=== PATIENT | female | born 1970 | race Caucasian/White ===

== ENCOUNTER → 2018-05-17 12:21 | Outpatient (CLI) | payer OTHER, SELFPAY ==
--- NOTE | 2018-05-17 12:27 | RAD_ITS ---
STUDY: X-RAY CHEST REASON FOR EXAM: Female, 48 years old. Acute bronchitis. TECHNIQUE: PA and lateral views of the chest. COMPARISON: Comparison is made with prior study dated July 14, 2015. FINDINGS: Hyperinflation. There is evidence of a lingular infiltrate. Follow-up is recommended. There is no demonstrated pleural abnormality. Normal size heart. Normal mediastinum and chris. Normal visualized pulmonary arteries. Normal visualized aortic arch and descending thoracic aorta. There are degenerative changes of the visualized thoracic spine. Normal visualized ribs, clavicles, and shoulders. There is no demonstrated abnormality of the visualized soft tissue structures of the upper abdomen. RAD/Chest PA and Lateral IMPRESSION: Lingular infiltrate. Follow-up is recommended. Electronically Signed: Darnell Infante MD at 13:21 EST Tel [phone], Service support ,
== END ==
PROVIDERS: Family Provider Family Medicine; PCP Family Medicine; Referring Provider Family Medicine; Visit Provider Family Medicine
DX: J20.9 Acute bronchitis, unspecified (principal)
CPT/HCPCS: 71046

== ENCOUNTER → 2018-07-26 15:52 | Outpatient (CLI) | payer OTHER, SELFPAY ==
[2018-07-26 17:40] LABS: Absolute Lymphocyte Count 1.47 X10^3/ul (0.83-4.51); Absolute Neutrophil Count 13.4 X10^3/uL (2.0-7.7); Basophil# 0.03 X10^3/uL; Basophil% 0.2 % (0-1); Lymphocyte # 1.47 X10^3/ul (4.0); Lymphocyte % 9.4 % (19-41); Mean Corpuscular Hgb 26.2 pg (27.0-32.0); Mean Corpuscular Volume 84.7 fL (81-99); Mean Platelet Vol. 9.3 fl (6.2-12.0); Monocyte# 0.47 X10^3/uL; Neutrophil # 13.37 X10^3/uL (2.7-7.7); Neutrophil % 85.9 % (47-70); POSITIVE COUNT NO; POSITIVE DIFFERENTIAL NO; POSITIVE MORPHOLOGY NO; Platelet Count 492 K/mm3 (150-450); RBC Distribution Width CV 16.9 % (11.6-14.6); RBC Distribution Width SD 51.6 fl (35.1-43.9); Red Blood Count 4.96 M/mm3 (4.2-5.4); White Blood Count 15.6 K/mm3 (4.4-11.0)
[2018-07-26 18:10] LABS: ALB/GLOB Ratio 1.2 RATIO (0.9-2.4); AST(SGOT) 10 U/L (15-37); Alanine Aminotransfer ALT/SGPT 31 U/L (13-56); Albumin, Serum 3.9 g/dL (3.2-5.0); Alkaline Phosphatase 72 U/L (45-117); Anion Gap 8 (5-15); BUN 15 mg/dL (7-18); Chloride 104 mmol/L (98-107); Creatinine, Serum 0.88 mg/dL (0.55-1.02); EST Glomerular Filtration Rate 73 mL/min (>60); Est Glom Filt Rate - Afr Amer 88 mL/min (>60); Globulin 3.2 g/dL (2.2-4.2); Glucose 112 mg/dL (74-106); Potassium 4.5 mmol/L (3.5-5.1); Protein, Total 7.1 g/dL (6.4-8.2); Sodium Level 138 mmol/L (136-145)
== END ==
PROVIDERS: Family Provider Family Medicine; PCP Family Medicine; Visit Provider Nurse Practitioner Adult Health
DX: R10.30 Lower abdominal pain, unspecified (principal)
CPT/HCPCS: 36415; 80053; 85025

== ENCOUNTER → 2018-08-05 07:09 | Outpatient (CLI) | payer OTHER, SELFPAY ==
--- NOTE | 2018-08-05 07:20 | CT_ITS ---
STUDY: CT ABDOMEN AND PELVIS WITH CONTRAST REASON FOR EXAM: Female, 48 years old. Lower abdominal pain, pain under the sternum area. Former smoker with history of hypertension, asthma, COPD. RADIATION DOSAGE (If Supplied By Facility): CTDIvol = ( 19.94 ) mGy, DLP = ( 1593.26 ) mGycm TECHNIQUE: Transaxial images were obtained from the dome of the diaphragm to the symphysis pubis with oral contrast. 100 ml of Isovue 300 contrast was administered. Sagittal and coronal images were reconstructed. Imaging was obtained in the portal venous phase contrast. Individualized dose optimization techniques were used for this CT. COMPARISON: None. FINDINGS: Body wall soft tissues: No acute process. Osseous structures: Prominent degenerative disc disease L5-S1 contributing to moderate left and mild right foraminal stenosis. Mild disc bulging at L4-L5 and L3-L4 without significant stenosis. Right hip arthroplasty appears to be normally seated and articulated. No acute osseous process. There are old right-sided posterior rib fractures, healed. Inferior chest: Hyperlucent lung bases consistent with COPD. Normal distal esophagus. No cardiomegaly. Hepatobiliary: Normal. Pancreas: Mild fatty atrophy. Spleen: Normal. Adrenal glands: Normal. Urogenital: Normal kidneys, collecting systems, ureters, urinary bladder, uterus, ovaries and adnexa. Pelvic floor and sidewalls and retroperitoneum: No mass or adenopathy. Vasculature: Minimal atherosclerosis. Stomach: No acute process. Small bowel and mesentery: No acute process. Large bowel: Normal appendix. Unremarkable large bowel and rectum. Free fluid or free air: None. CT/Abdomen/Pelvis WITH Contrast IMPRESSION: No acute abdominopelvic process is evident. Electronically Signed: Jamison Lobato MD at 13:05 EDT Tel , Service support ,
== END ==
PROVIDERS: Family Provider Family Medicine; PCP Family Medicine; Referring Provider Family Medicine; Visit Provider Family Medicine
DX: R10.30 Lower abdominal pain, unspecified (principal)
CPT/HCPCS: 74177; Q9967

== ENCOUNTER → 2018-09-08 16:43 | Outpatient (CLI) | payer OTHER, SELFPAY ==
[2018-09-08 17:44] LABS: Hematocrit 41.5 % (37-47); Hemoglobin 13.6 g/dl (12.0-15.0); Mean Corp Hgb Conc 32.8 g/gl (32-36); Mean Corpuscular Volume 82.3 fL (81-99); Mean Platelet Vol. 9.4 fl (6.2-12.0); POSITIVE COUNT NO; POSITIVE DIFFERENTIAL NO; POSITIVE MORPHOLOGY NO; Platelet Count 306 K/mm3 (150-450); RBC Distribution Width CV 17.8 % (11.6-14.6); RBC Distribution Width SD 52.4 fl (35.1-43.9); Red Blood Count 5.04 M/mm3 (4.2-5.4); White Blood Count 5.2 K/mm3 (4.4-11.0)
[2018-09-08 17:45] LABS: Absolute Neutrophil Count 2.7 X10^3/uL (2.0-7.7); Basophil# 0.02 X10^3/uL; Basophil% 0.4 % (0-1); Eosinophil# 0.23 X10^3/uL; Eosinophils% 4.4 % (0-5); Lymphocyte # 1.39 X10^3/ul (4.0); Lymphocyte % 26.7 % (19-41); Monocyte# 0.83 X10^3/uL; Neutrophil # 2.73 X10^3/uL (2.7-7.7); Neutrophil % 52.5 % (47-70)
[2018-09-10 16:08] LABS: Endomysial Antibody IgA Negative (Negative)
[2018-09-11 08:50] LABS: Deamidated Gliadin IgA 3 units (0-19); Deamidated Gliadin IgG 2 units (0-19); Immunoglobulin A 109 mg/dL (87-352); t-Transglutaminase IgA <2 U/mL (0-3)
== END ==
PROVIDERS: Family Provider Family Medicine; PCP Family Medicine; Referring Provider Family Medicine; Visit Provider Family Medicine
DX: K58.9 Irritable bowel syndrome, unspecified (principal)
CPT/HCPCS: 36415; 82784; 83516; 85025; 86255

== ENCOUNTER → 2018-10-01 16:36 | Outpatient (CLI) | payer OTHER, SELFPAY ==
[2018-10-12 09:32] LABS: Fats, Neutral Normal (.); Fats, Total Normal (.)
== END ==
PROVIDERS: Family Provider Family Medicine; PCP Family Medicine; Referring Provider Internal Medicine Gastroenterology; Visit Provider Internal Medicine Gastroenterology
DX: R19.7 Diarrhea, unspecified (principal)
CPT/HCPCS: 82705

== ENCOUNTER → 2019-04-04 10:11 | Outpatient (CLI) | payer OTHER, SELFPAY ==
[2019-04-04 12:22] LABS: Erythrocyte Sedimentation Rate 12 mm/hr (0-20)
[2019-04-04 12:48] LABS: Rheumatoid Factor < 10.0 IU/mL (<15); Thyroid Stim Hormone (TSH) 2.84 uIU/mL (0.358-3.74)
[2019-04-05 14:25] LABS: ANTINUCLEAR ANTIBODIES DIRECT Negative (Negative)
== END ==
PROVIDERS: Family Provider Family Medicine; PCP Family Medicine; Visit Provider Family Medicine
DX: E55.9 Vitamin D deficiency, unspecified (principal); F32.9 Major depressive disorder, single episode, unspecified; M25.50 Pain in unspecified joint
CPT/HCPCS: 36415; 82306; 84443; 85652; 86038; 86140; 86431

== ENCOUNTER → 2019-05-31 07:48 | Outpatient (CLI) | payer OTHER, SELFPAY ==
[2019-05-09 08:00] VITALS: BMI 43.4
--- NOTE | 2019-05-31 16:05 | PFTCOMP_ITS ---
COMPLETE PULMONARY FUNCTION TEST INTERPRETATION Brief HPI: Patient is a 49 year old female, currently under the care of Dr. Payne, who presents to [facility] for complete pulmonary function tests secondary to diagnosis of COPD. Respiratory therapist reports good effort and reproducible results. Interpretation: Forced expiration spirometry shows a severe large airways obstructive ventilatory defect with an FEV1 of 54% predicted. There is a significant bronchodilator response in FVC and FEV1 by strict ATS criteria. Spirograms are of good quality and plateau slowly, indicating slowly emptying areas of the lungs. The respiratory flow volume loop shows decreased expiratory flow rates at all lung volumes consistent with airway obstruction. Lung volumes by body plethysmography show a normal total lung capacity at 5.42 L, 111% predicted. FRC and RV are elevated out of proportion. Lung volume measurements are consistent with air-trapping. Diffusion capacity by carbon monoxide is normal at 85% predicted. The airway resistance is elevated. No previous pulmonary function tests were available for review. Impression: Partially reversible severe large airways obstructive ventilatory defect resulting in air trapping with preserved diffusion capacity.
== END ==
PROVIDERS: Family Provider Family Medicine; PCP Family Medicine; Referring Provider Internal Medicine Critical Care Medicine; Visit Provider Internal Medicine Critical Care Medicine
DX: J44.9 Chronic obstructive pulmonary disease, unspecified (principal)
CPT/HCPCS: 94060; 94726; 94729

== ENCOUNTER → 2019-06-01 07:26 | Outpatient (CLI) | payer OTHER, SELFPAY ==
[2019-05-09 08:00] VITALS: BMI 43.4
[2019-06-01 08:02] VITALS: PULSE 105; PULSE 106; PULSE 111; PULSE 112; PULSE 91; PULSE 92; PULSE 95; PULSE 98; O2SAT 93; O2SAT 94; O2SAT 95; O2SAT 97; O2SAT 98
--- NOTE | 2019-06-01 14:28 | PCM.PSN.6M ---
PSN 6 Minute Walk Test - 6 Minute Walk Test 6 Minute Walk Test: 6 Minute Walk Test PSN:6-Minute Walk Test Start: 06/01/19 08:02 Freq: Status: Active Protocol: RESP.6MINW Document 06/01/19 08:02 [facility] (Rec: 06/01/19 08:06 [facility] [id number]) 6 Minute Walk Test Date Performed 06/01/19 Time Performed 07:30 Height 5 ft 3.5 in Weight: 108.862 kg Weight in Pounds 240.[address]: Aris Payne Assistive device used: None Pre-test Oxygen Delivery Method Room Air Pulse Ox (%) 97 Pulse Rate (60-100 beats/min) 91 Dyspnea Vera Scale (0-10) 2 1st minute Oxygen Delivery Method Room Air Pulse Ox (%) 95 Pulse Rate (60-100 beats/min) 95 Dyspnea Vera Scale (0-10) 2 Number of Rests Taken 0 2nd minute Oxygen Delivery Method Room Air Pulse Ox (%) 94 Pulse Rate (60-100 beats/min) 98 Dyspnea Vera Scale (0-10) 3 Number of Rests Taken 0 Reported Symptoms Increased Work of Breathing 3rd minute Oxygen Delivery Method Room Air Pulse Ox (%) 93 Pulse Rate (60-100 beats/min) 105 H Dyspnea Vera Scale (0-10) 4 Number of Rests Taken 0 Reported Symptoms Increased Work of Breathing 4th minute Oxygen Delivery Method Room Air Pulse Ox (%) 95 Pulse Rate (60-100 beats/min) 106 H Dyspnea Vera Scale (0-10) 4 Number of Rests Taken 0 Reported Symptoms Increased Work of Breathing 5th minute Oxygen Delivery Method Room Air Pulse Ox (%) 95 Pulse Rate (60-100 beats/min) 111 H Dyspnea Vera Scale (0-10) 4 Number of Rests Taken 0 Reported Symptoms Increased Work of Breathing 6th minute Oxygen Delivery Method Room Air Pulse Ox (%) 94 Pulse Rate (60-100 beats/min) 112 H Dyspnea Vera Scale (0-10) 5 Number of Rests Taken 0 Reported Symptoms Increased Work of Breathing Post-test Oxygen Delivery Method Room Air Pulse Ox (%) 98 Pulse Rate (60-100 beats/min) 92 Dyspnea Vera Scale (0-10) 2 Full Laps Walked 18 Partial Lap, Number of Tiles Walked 36 Total Distance Walked (ft) 1098 - Interpretation Interpretation: The patient was able to ambulate 1098 feet over the course of 6 minutes on room air with no assistive devices or breaks. The patient was noted to have an oxygen ti of 93% with some tachycardia as high as 112 bpm. These findings are consistent with deconditioning. - Recommendations Recommendations: No supplemental oxygen is indicated at this time.
== END ==
PROVIDERS: Family Provider Family Medicine; PCP Family Medicine; Referring Provider Internal Medicine Critical Care Medicine; Visit Provider Internal Medicine Critical Care Medicine
DX: J44.9 Chronic obstructive pulmonary disease, unspecified (principal)
CPT/HCPCS: 94618

== ENCOUNTER → 2019-06-06 08:36 | Outpatient (CLI) | payer OTHER, SELFPAY ==
[2019-06-06 07:41] VITALS: BMI 43.4
[2019-06-06 09:08] LABS: Absolute Neutrophil Count 7.7 X10^3/uL (2.0-7.7); Basophil# 0.07 X10^3/uL; Basophil% 0.6 % (0-1); Eosinophil# 0.24 X10^3/uL; Eosinophils% 2.2 % (0-5); Hematocrit 42.7 % (37-47); Hemoglobin 13.9 g/dL (12.0-15.0); Mean Corp Hgb Conc 32.6 g/dL (32-36); Mean Corpuscular Volume 86.1 fL (81-99); Mean Platelet Vol. 9.1 fl (6.2-12.0); Monocyte# 0.72 X10^3/uL; Monocyte% 6.6 % (0-10); NRBC Flagged by Analyzer 0 % (0-5); Neutrophil % 70.1 % (47-70); Platelet Count 412 K/mm3 (150-450); RBC Distribution Width CV 14.8 % (11.6-14.6); RBC Distribution Width SD 46.6 fl (35.1-43.9); Red Blood Count 4.96 M/mm3 (4.2-5.4)
[2019-06-08 20:07] LABS: Alternaria alternata <0.10 kU/L (Class 0); Bermuda Grass <0.10 kU/L (Class 0); Bluegrass, Kentucky <0.10 kU/L (Class 0); Cat Hair/Dander, Standard <0.10 kU/L (Class 0); D farinae Mite <0.10 kU/L (Class 0); D pteronyssinus <0.10 kU/L (Class 0); Dog Epithelia <0.10 kU/L (Class 0); Elm, American White <0.10 kU/L (Class 0); Oak, White <0.10 kU/L (Class 0); Plantain, English <0.10 kU/L (Class 0); Ragweed, Short/Common <0.10 kU/L (Class 0)
[2019-06-09 00:44] LABS: Mouse Urine <0.10 kU/L (Class 0)
[2019-06-10 20:07] LABS: Aspirgillus flavus Negative (Neg:<1:1); Aspirgillus fumigatus Negative (Neg:<1:1); Aspirgillus niger Negative (Neg:<1:1)
[2019-06-10 21:44] LABS: Immunoglobulin E 36 IU/mL (6-495)
== END ==
PROVIDERS: PCP Family Medicine; Referring Provider Nurse Practitioner Acute Care; Visit Provider Nurse Practitioner Acute Care
DX: J44.9 Chronic obstructive pulmonary disease, unspecified (principal)
CPT/HCPCS: 36415; 82785; 85025; 86003; 86606

== ENCOUNTER → 2019-06-13 07:40 | Outpatient (CLI) | payer OTHER, SELFPAY ==
[2019-06-06 07:41] VITALS: BMI 43.4
--- NOTE | 2019-06-13 07:45 | RAD_ITS ---
STUDY: X-RAY - PELVIS REASON FOR EXAM: Female, 49 years old. Inflammatory polyarthropathy TECHNIQUE: One view of the pelvis was obtained. COMPARISON: None. FINDINGS: There is a non-specific bowel gas pattern. Normal visualized soft tissue structures. Normal bilateral iliac wings, sacroiliac joints and visualized sacrum. Normal visualized bilateral superior and inferior pubic rami. Normal pubic symphysis. Normal ischial tuberosities. The patient is status post right total hip replacement. Normal visualized left femoral head. Normal left acetabulum. Normal left hip joint. RAD/Pelvis 1 or 2 Views IMPRESSION: Status post right total hip replacement. Electronically Signed: Darnell Infante, at 11:05 EST , Service support ,
[2019-06-13 10:36] LABS: Erythrocyte Sedimentation Rate 8 mm/hr (0-20)
[2019-06-13 10:38] LABS: Absolute Lymphocyte Count 1.58 X10^3/uL (0.83-4.51); Absolute Neutrophil Count 7.1 X10^3/uL (2.0-7.7); Basophil# 0.04 X10^3/uL; Basophil% 0.4 % (0-1); Eosinophil# 0.03 X10^3/uL; Eosinophils% 0.3 % (0-5); Hematocrit 38.8 % (37-47); Hemoglobin 12.6 g/dL (12.0-15.0); Lymphocyte # 1.58 X10^3/ul (4.0); Lymphocyte % 17.1 % (19-41); Mean Corp Hgb Conc 32.5 g/dL (32-36); Mean Corpuscular Hgb 27.9 pg (27.0-32.0); Mean Platelet Vol. 9.8 fl (6.2-12.0); Monocyte# 0.52 X10^3/uL; Monocyte% 5.6 % (0-10); NRBC Flagged by Analyzer 0 % (0-5); Neutrophil # 7.07 X10^3/uL (2.7-7.7); Neutrophil % 76.4 % (47-70); Platelet Count 346 K/mm3 (150-450); RBC Distribution Width CV 14.8 % (11.6-14.6); RBC Distribution Width SD 46.5 fl (35.1-43.9); Red Blood Count 4.51 M/mm3 (4.2-5.4); White Blood Count 9.3 K/mm3 (4.4-11.0)
[2019-06-13 10:41] LABS: ALB/GLOB Ratio 1.3 RATIO (0.9-2.4); AST(SGOT) 21 U/L (15-37); Alanine Aminotransfer ALT/SGPT 35 U/L (13-56); Albumin, Serum 4.1 g/dL (3.2-5.0); Alkaline Phosphatase 83 U/L (45-117); Anion Gap 6 (5-15); BUN 10 mg/dL (7-18); BUN/Creat Ratio 11.4 RATIO (10-20); CRP 4.82 mg/L (0.0-3.0); Calcium,Total 9.1 mg/dL (8.5-10.1); Chloride 101 mmol/L (98-107); Creatinine, Serum 0.88 mg/dL (0.55-1.02); EST Glomerular Filtration Rate 73 mL/min (>60); Est Glom Filt Rate - Afr Amer 89 mL/min (>60); Globulin 3.2 g/dL (2.2-4.2); Glucose 106 mg/dL (74-106); Potassium 3.7 mmol/L (3.5-5.1); Protein, Total 7.3 g/dL (6.4-8.2); Rheumatoid Factor < 10.0 IU/mL (<15); Sodium Level 135 mmol/L (136-145)
[2019-06-13 11:32] LABS: Hepatitis B Surface Antibody Non-Reactive; Hepatitis B Surface Antigen Non-Reactive (Nonreactive); Hepatitis C Antibody Non-Reactive (Nonreactive)
[2019-06-15 14:02] LABS: ANTINUCLEAR ANTIBODIES DIRECT Negative (Negative)
[2019-06-20 11:51] LABS: CCP IgG Antibodies 8 units (0-19); HLA B27 Negative (.); Hepatitis B Core AB IgM Negative (Negative)
== END ==
PROVIDERS: PCP Family Medicine; Referring Provider Internal Medicine Rheumatology; Visit Provider Internal Medicine Rheumatology
DX: M06.4 Inflammatory polyarthropathy (principal); M79.7 Fibromyalgia; M21.40 Flat foot [pes planus] (acquired), unspecified foot; M17.0 Bilateral primary osteoarthritis of knee; K21.9 Gastro-esophageal reflux disease without esophagitis; I10 Essential (primary) hypertension; J44.9 Chronic obstructive pulmonary disease, unspecified; I83.93 Asymptomatic varicose veins of bilateral lower extremities
CPT/HCPCS: 36415; 72170; 80053; 81374; 85025; 85652; 86038; 86140; 86200; 86431; 86705; 86706; 86803; 87340

== ENCOUNTER → 2019-06-15 14:25 | Outpatient (CLI) | payer OTHER, SELFPAY ==
[2019-05-09 08:00] VITALS: BMI 43.4
[2019-06-06 07:41] VITALS: BMI 43.4
== END ==
PROVIDERS: Family Provider Family Medicine; PCP Family Medicine; Referring Provider Internal Medicine Critical Care Medicine; Visit Provider Internal Medicine Critical Care Medicine
DX: G47.33 Obstructive sleep apnea (adult) (pediatric) (principal)
CPT/HCPCS: 95811

== ENCOUNTER → 2019-06-23 10:37 | Outpatient (CLI) | payer OTHER, SELFPAY ==
[2019-06-06 07:41] VITALS: BMI 43.4
--- NOTE | 2019-06-23 10:40 | RAD_ITS ---
STUDY: X-RAY - UNILATERAL RIBS ( RIGHT ) WITH CHEST REASON FOR EXAM: Female, 49 years old. Right side rib pain after lifting something heavy TECHNIQUE - RIBS: 4 view(s) of the ribs. TECHNIQUE - CHEST: Single PA view of the chest. COMPARISON: None. FINDINGS - RIBS: Normal visualized ribs without a demonstrated fracture. FINDINGS - CHEST: The lungs are clear and expanded. There is no demonstrated pleural abnormality. Normal size heart. Normal mediastinum and chris. Normal visualized pulmonary arteries. Normal visualized aortic arch and descending thoracic aorta. Normal visualized thoracic spine. Normal visualized ribs, clavicles, and shoulders. There is no demonstrated abnormality of the visualized soft tissue structures of the upper abdomen. RAD/Ribs Uni Min 3V w/PA Chest IMPRESSION: RIBS: Normal x-ray examination of the ribs. CHEST: Normal x-ray examination of the chest. Electronically Signed: Darnell Infante, at 11:40 EST , Service support ,
== END ==
PROVIDERS: PCP Family Medicine; Referring Provider Family Medicine; Visit Provider Family Medicine
DX: R07.81 Pleurodynia (principal)
CPT/HCPCS: 71101

== ENCOUNTER → 2019-08-03 14:01 | Outpatient (CLI) | payer OTHER, SELFPAY ==
[2019-07-20 07:50] VITALS: BMI 41.3
--- NOTE | 2019-08-03 14:06 | RAD_ITS ---
STUDY: X-RAY CHEST REASON FOR EXAM: Female, 49 years old. Rales [address] up posterior chest wall on right side -- sob and right side chest pain TECHNIQUE: PA and lateral views of the chest. COMPARISON: Comparison is made with prior examination dated June 23, 2019. FINDINGS: Mild increased markings in the lingular segment of the left upper lobe. Early infiltrate should be ruled out. There is no demonstrated pleural abnormality. Normal size heart. Normal mediastinum and chris. Normal visualized pulmonary arteries. Normal visualized aortic arch and descending thoracic aorta. Normal visualized thoracic spine. Normal visualized ribs, clavicles, and shoulders. There is no demonstrated abnormality of the visualized soft tissue structures of the upper abdomen. RAD/Chest PA and Lateral IMPRESSION: Increased markings are seen in the lingular segment of the left upper lobe. Follow-up is recommended. Electronically Signed: Darnell Infante, at 15:32 EDT , Service support ,
[2019-08-03 15:29] LABS: Absolute Lymphocyte Count 2.31 X10^3/uL (0.83-4.51); Absolute Neutrophil Count 8.7 X10^3/uL (2.0-7.7); Basophil# 0.07 X10^3/uL; Basophil% 0.6 % (0-1); Eosinophil# 0.19 X10^3/uL; Eosinophils% 1.5 % (0-5); Hematocrit 39.1 % (37-47); Hemoglobin 12.8 g/dL (12.0-15.0); Lymphocyte # 2.31 X10^3/ul (4.0); Lymphocyte % 18.3 % (19-41); Mean Corp Hgb Conc 32.7 g/dL (32-36); Mean Corpuscular Hgb 27.8 pg (27.0-32.0); Mean Corpuscular Volume 84.8 fL (81-99); Mean Platelet Vol. 9.2 fl (6.2-12.0); Monocyte% 10.3 % (0-10); NRBC Flagged by Analyzer 0 % (0-5); Neutrophil # 8.66 X10^3/uL (2.7-7.7); Neutrophil % 68.7 % (47-70); Platelet Count 359 K/mm3 (150-450); RBC Distribution Width CV 14.4 % (11.6-14.6); RBC Distribution Width SD 43.8 fl (35.1-43.9); Red Blood Count 4.61 M/mm3 (4.2-5.4); White Blood Count 12.6 K/mm3 (4.4-11.0)
[2019-08-03 15:49] LABS: ALB/GLOB Ratio 1.2 RATIO (0.9-2.4); AST(SGOT) 24 U/L (15-37); Alanine Aminotransfer ALT/SGPT 32 U/L (13-56); Alkaline Phosphatase 87 U/L (45-117); Anion Gap 14 (5-15); BUN 23 mg/dL (7-18); BUN/Creat Ratio 20.4 RATIO (10-20); Calcium,Total 8.7 mg/dL (8.5-10.1); Chloride 95 mmol/L (98-107); Creatinine, Serum 1.13 mg/dL (0.55-1.02); EST Glomerular Filtration Rate 55 mL/min (>60); Est Glom Filt Rate - Afr Amer 66 mL/min (>60); Globulin 3.4 g/dL (2.2-4.2); Glucose 103 mg/dL (74-106); Potassium 3.4 mmol/L (3.5-5.1); Protein, Total 7.4 g/dL (6.4-8.2); Sodium Level 130 mmol/L (136-145)
== END ==
PROVIDERS: PCP Family Medicine; Referring Provider Family Medicine; Visit Provider Family Medicine
DX: R10.11 Right upper quadrant pain (principal); R09.89 Other specified symptoms and signs involving the circulatory and respiratory systems
CPT/HCPCS: 36415; 71046; 80053; 85025; 86140

== ENCOUNTER → 2019-08-03 15:57 | Outpatient (CLI) | payer OTHER, SELFPAY ==
[2019-07-20 07:50] VITALS: BMI 41.3
--- NOTE | 2019-08-03 16:17 | CT_ITS ---
STUDY: CT ABDOMEN WITH CONTRAST REASON FOR EXAM: Female, 49 years old. RUQ PAIN,ABN DIAPHRAGM SEEN ON CXR -- HX:ASTHMA,COPD RADIATION DOSAGE (If Supplied By Facility): CTDIvol = ( 22.01 ) mGy, DLP = ( 845.56 ) mGycm TECHNIQUE: Transaxial images were obtained post I.V. administration of Oral and amp; IV Gastrografin and amp; 100mL Isovue-300, and oral contrast. Sagittal and coronal images were reconstructed. Individualized dose optimization techniques were used for this CT. COMPARISON: CT abdomen and pelvis 08/05/2018. FINDINGS: The visualized lung bases are unremarkable. The visualized portions of the heart are within normal limits. There is a right diaphragmatic hernia which contains fat. There are old right posterior rib fractures. Normal liver. Normal gallbladder and extrahepatic biliary system. Normal spleen. Normal pancreas. Normal bilateral adrenal glands. Normal right kidney. Normal left kidney. Normal visualized stomach. There are a few small air bubbles demonstrated at the third or fourth portion of the duodenum. There was a air bubble present in this location on prior exam. Normal colon. The appendix is visualized and appears normal. Normal abdominal aorta. Normal inferior vena cava. Normal retroperitoneum. Normal abdominal wall. Stable multilevel degenerative changes thoracic and lumbar spine. There is an anterior abdominal wall hernia which contains nondistended colon. CT/Abdomen WITH IV Contrast IMPRESSION: Right diaphragmatic hernia which contains fat Old right posterior rib fractures Small air bubbles within the duodenum which was present on prior exam may and represent duodenal diverticulum, peptic ulcer disease cannot be excluded. Anterior abdominal wall hernia which contains nondistended colon Stable multilevel degenerative changes of the thoracic and lumbar spine Electronically Signed: Dennis Conn, at 18:49 EDT Tel , Service support ,
== END ==
PROVIDERS: PCP Family Medicine; Referring Provider Family Medicine; Visit Provider Family Medicine
DX: R10.11 Right upper quadrant pain (principal)
CPT/HCPCS: 74160; Q9967

== ENCOUNTER 2019-10-18 15:03 | Outpatient (RCR) | payer OTHER, SELFPAY ==
[2019-07-20 07:50] VITALS: BMI 41.3
== END 2019-10-18 23:59 | disposition home or self-care (01) ==
LOC: NS 15:03
PROVIDERS: PCP Family Medicine; Visit Provider Family Medicine
DX: Z71.3 Dietary counseling and surveillance (principal)
CPT/HCPCS: 97802

== ENCOUNTER 2019-10-31 07:29 | Day surgery (SDC) | payer OTHER, SELFPAY ==
--- NOTE | 2019-10-24 03:43 | HP_ITS ---
Intake Vital Signs 10/24/19 Height 5 ft 3 in 10/24/19 Weight: 250 lb 10/24/19 BMI 44.2 10/24/19 BP 153/84 H 10/24/19 Blood Pressure Location Lt brachial 10/24/19 Position Sitting 10/24/19 Respiration 16 10/21/19 BMI 44.2 Intake Visit Reasons: update h&p umbilical hernia repair w/ RC 6-22 Chief Complaint: possible hernia Medical Facilities Section Director Required: No Is patient in pain?: No Allergies meloxicam [From Mobic] Allergy (Intermediate, Verified 10/24/19 13:16) nausea and vomiting Sulfa (Sulfonamide Antibiotics) Allergy (Verified 10/24/19 13:16) Hives levofloxacin [From Levaquin] Adverse Reaction (Verified 10/24/19 13:16) Other Medications buspirone 15 mg tablet 15 mg PO BID 04/18/19 [History Confirmed 10/19/19] cholecalciferol (vitamin D3) 50 mcg (2,000 unit) tablet 2,000 unit PO DAILY 04/18/19 [History Confirmed 10/19/19] hydroxyzine HCl 25 mg tablet 25 mg PO TID-QID 04/18/19 [History Confirmed 10/19/19] lactobacillus combination no.8 3 billion cell capsule 3,000 mmu cells PO DAILY 04/18/19 [History Confirmed 10/19/19] lansoprazole 30 mg capsule,delayed release 30 mg PO DAILY 04/18/19 [History Confirmed 10/19/19] losartan 100 mg tablet 100 mg PO DAILY 04/18/19 [History Confirmed 10/19/19] albuterol sulfate 2.5 mg INHALATION Q4H PRN ml 07/11/19 [History Confirmed 10/19/19] amlodipine 10 mg tablet 10 mg PO DAILY tab 07/11/19 [History Confirmed 10/19/19] carisoprodol 350 mg tablet 350 mg PO BID tab 07/11/19 [History Confirmed 10/19/19] dextroamphetamine-amphetamine ER 20 mg 24hr capsule,extend release 20 mg PO DAILY 07/11/19 [History Confirmed 10/19/19] dicyclomine 20 mg tablet 20 mg PO 4X/DAY PRN tab 07/11/19 [History Confirmed 10/19/19] hydrochlorothiazide 25 mg tablet 25 mg PO DAILY tab 07/11/19 [History Confirmed 10/19/19] ibuprofen 800 mg tablet 800 mg PO BID PRN tab 07/11/19 [History Confirmed 10/19/19] nystatin 100,000 unit/mL oral suspension 1 ml PO TID PRN ml 07/11/19 [History Confirmed 10/19/19] prednisone 10 mg tablet 10 mg PO DAILY PRN 07/11/19 [History Confirmed 10/19/19] venlafaxine 150 mg capsule,extended release 24 hr 150 mg PO DAILY cap 07/11/19 [History Confirmed 10/19/19] cetirizine 10 mg capsule 10 mg PO HS #30 cap 07/20/19 [Rx Confirmed 10/19/19] fluticasone propionate 50 mcg/actuation nasal spray,suspension 2 spray INTRANASAL DAILY #16 g 07/20/19 [Rx Confirmed 10/19/19] folic acid 1 mg tablet 1 mg PO DAILY 07/20/19 [History Confirmed 10/19/19] montelukast 10 mg tablet 10 mg PO QPM #30 tab 07/20/19 [Rx Confirmed 10/19/19] ipratropium 0.5 mg-albuterol 3 mg (2.5 mg base)/3 mL nebulization soln 3 ml INHALATION Q6H PRN #180 ml 08/05/19 [Rx Confirmed 10/19/19] albuterol sulfate 90 mcg/actuation aerosol inhaler 2 puff INHALATION Q4H PRN PRN #18 g 10/19/19 [Rx Confirmed 10/19/19] budesonide-formoterol HFA 160 mcg-4.5 mcg/actuation aerosol inhaler 2 puff INHALATION BID #1 device 10/19/19 [Rx Confirmed 10/19/19] tiotropium bromide 2.5 mcg/actuation mist for inhalation 2 puff INHALATION QDAY #1 ea 10/19/19 [Rx Confirmed 10/19/19] topiramate 25 mg capsule,extended release 24 hr 25 mg PO DAILY 10/24/19 [History Confirmed 10/24/19] [facility] Medical History Essential hypertension (Chronic) [place] (obstructive sleep apnea) (Chronic) Ventral incisional hernia without obstruction or gangrene (Acute) Chronic back pain (Chronic) Asthma exacerbation in COPD (Acute) Back pain (Acute) Anxiety and depression (Chronic) GERD (gastroesophageal reflux disease) (Chronic) Osteoarthritis (Chronic) Rheumatoid arthritis (Chronic) Surgical History History of carpal tunnel release of both wrists (Resolved) History of section (Resolved) History of colonoscopy (Resolved ~2015) History of right hip replacement (Resolved) History of tonsillectomy (Resolved) Hx of fasciotomy (Resolved) Family History Mother Diabetes Heart disease Hypertension Kidney disease Social History (Updated 10/24/19 @ 15:59 by Ariane Black PA-C) Smoking Status: Former smoker Tobacco: How many years used: 28 how long ago did patient quit smokin years, 2015 second hand exposure: Yes alcohol intake: current alcohol intake frequency: a few times a month substance use type: does not use caffeine: Yes Type: carbonated beverages Number of servings: 1, coffee Number of servings: 3 HPI HPI HPI: GURINDER MCCRARY, is a 49 F who presents to the office today for HPI HPI Surgical H&P: Yes HPI: GURINDER MCCRARY, is a 49 F who presents to the office today for an update H&P for an elective incisional hernia repair. Patient denies recent hospitalizations or illnesses since her last office visit. She denies previous anesthesia side effects or complications. She denies increased pain at the hernia site. She notes more recent constipation. Patient does have COPD and HTN. 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 She notes a previous . Patient's previous history per Dr. Johnson: GURINDER MCCRARY, is a 49 F who presents to the office today for surgical consultation regarding a ventral periumbilical incisional hernia. The patient is referred by Dr. Jeff Sorensen and a written compromise surgical consult recommendations will return to him. The patient actually has multiple various concerns. She has a bulging pain at the umbilical area she claims occasionally there is redness, numbness and tingling. She is stable to reduce it. She complains of gas bloat. She has some nausea. She has general feeling of unwellness. It is of note that July [address] scan of the abdomen. On my review she had a very small umbilical hernia at that time. Now it appears to have significantly enlarged in. The patient works at [employer]. She has significant COPD and asthma. She does not currently have a policy advisor. She states that she does not currently use tobacco. She notes that she has been having problems with breathing frequently. She states that over the years she has been on multiple courses of steroids. She states that this has caused her to increase weight. Current BMI is 43.1. ROS General General: Yes weight change and fatigue; no appetite, colon cancer, breast cancer or weakness HEENT HEENT: No difficulty swallowing, eye injury, eye surgery, swollen glands or hoarseness Endo Endocrine: No thyroid disease, diabetes mellitus, thyroid cancer, Hair loss, heat intolerance or cold intolerance Musc Musculoskeletal: Yes back problems, arthritis and rheumatoid arthritis; no gout or joint pain Cardio Cardiovascular: Yes high blood pressure; no murmur, pacemaker, heart disease, atrial fibrillation, heart attack, heart stent, palpitations, shortness of breat with exertion or chest pain Resp Respiratory: Yes shortness of breath, No sleep apnea, Yes cough, Yes COPD, Yes asthma, No emphysema, No wheezing Gastro Gastrointestinal: Yes abdominal pain, Yes nausea or vomiting, Yes diarrhea, Yes constipation, No blood in stool, Yes acid reflux, No hemorrhoids, No ulcers, No gallbladder problem, No black,tarry stools Deandre Hematologic: No blood thinners, No blood disorders, No bleeding, No anemia, No blood clots Neuro Neurologic: No weakness Exam Const General: cooperative, healthy appearing, comfortable, no acute distress Nutritional Appearance: obese [facility] Head: normal to inspection Eyes General: appearance normal, both eyes and all related structures Neck Neck: normal visual inspection Neck mass: No Resp Effort & Inspection: normal respiratory effort Auscultation: clear to auscultation bilaterally Cardio Rate: regular rate Rhythm: regular rhythm Heart Sounds: no murmurs GI Inspection: normal to inspection, obesity Palpation: soft, hernia (incisional ventral hernia) Skin General: no rashes or lesions noted Neuro General: no focal motor deficits, CN's II-XI intact bilaterally Extrem General: normal to inspection Psych Appearance: grossly normal Affect: normal affect Assessment & Plan Problems 1. Ventral incisional hernia without obstruction or gangrene K43.[address] Johnson will plan to perform an open possible conversion to laparoscopic ventral incisional hernia repair with preperitoneal mesh placement. Procedure details, risks and benefits have been reviewed with the patient. Patient has had the opportunity to ask and have questions answered. Patient verbally understands and agrees with the plan. Will reach out to pulmonary and cardiology to confirm patient is cleared for surgery. Coding Level of Care Code No Charge Diagnoses Ventral incisional hernia without obstruction or gangrene K43.2 10/24/19 1559 <Electronically signed by Ariane recio PA-C> Date _ Ariane Black PA-C
[2019-10-24 13:18] VITALS: BMI 44.2
[2019-10-28 11:18] LABS: Hematocrit 42.2 % (37-47); Hemoglobin 13.6 g/dL (12.0-15.0); Mean Corp Hgb Conc 32.2 g/dL (32-36); Mean Corpuscular Hgb 27.6 pg (27.0-32.0); Mean Corpuscular Volume 85.8 fL (81-99); Mean Platelet Vol. 9.2 fl (6.2-12.0); Platelet Count 446 K/mm3 (150-450); RBC Distribution Width CV 15.1 % (11.6-14.6); RBC Distribution Width SD 46.5 fl (35.1-43.9); Red Blood Count 4.92 M/mm3 (4.2-5.4); White Blood Count 10.6 K/mm3 (4.4-11.0)
[2019-10-28 11:26] LABS: Partial Thromboplast Time 31.6 Seconds (24.1-36.2)
[2019-10-28 11:55] LABS: AST(SGOT) 24 U/L (15-37); Alanine Aminotransfer ALT/SGPT 32 U/L (13-56); Alkaline Phosphatase 118 U/L (45-117); Anion Gap 10 (5-15); BUN 13 mg/dL (7-18); Calcium,Total 9.4 mg/dL (8.5-10.1); Chloride 100 mmol/L (98-107); Creatinine, Serum 0.87 mg/dL (0.55-1.02); EST Glomerular Filtration Rate 74 mL/min (>60); Est Glom Filt Rate - Afr Amer 90 mL/min (>60); Globulin 3.8 g/dL (2.2-4.2); Glucose 111 mg/dL (74-106); Potassium 3.3 mmol/L (3.5-5.1); Protein, Total 7.8 g/dL (6.4-8.2); Sodium Level 133 mmol/L (136-145)
[2019-10-31] VITALS (7 sets, daily range): BP systolic 109–147; BP diastolic 63–85; PULSE 75–95; RESP 16; TEMP 36.4–36.9; O2SAT 92–97; BMI 44.1
[2019-10-31 07:58] LABS: Internal QC Validated? YES +Cl - CLEAR BKGD; Pregnancy, Urine Negative Negative
[2019-10-31] MEDS: Lactated Ringers 1,000 ML 30 ML IV (08:19)
--- NOTE | 2019-10-31 08:44 | HP.PCM_ITS ---
Problem List (1) Ventral incisional hernia without obstruction or gangrene Status: Acute History and Physical Date of Admission: 10/31/19 Intake Visit Reasons: update h&p umbilical hernia repair w/ RC - Chief Complaint: possible hernia Director Of Instruction Required: No Is patient in pain?: No Allergies meloxicam [From Mobic] Allergy (Intermediate, Verified 10/24/19 13:16) nausea and vomiting Sulfa (Sulfonamide Antibiotics) Allergy (Verified 10/24/19 13:16) Hives levofloxacin [From Levaquin] Adverse Reaction (Verified 10/24/19 13:16) Other Medications buspirone 15 mg tablet 15 mg PO BID 04/18/19 [History Confirmed 10/19/19] cholecalciferol (vitamin D3) 50 mcg (2,000 unit) tablet 2,000 unit PO DAILY 04/18/19 [History Confirmed 10/19/19] hydroxyzine HCl 25 mg tablet 25 mg PO TID-QID 04/18/19 [History Confirmed 10/19/19] lactobacillus combination no.8 3 billion cell capsule 3,000 mmu cells PO DAILY 04/18/19 [History Confirmed 10/19/19] lansoprazole 30 mg capsule,delayed release 30 mg PO DAILY 04/18/19 [History Confirmed 10/19/19] losartan 100 mg tablet 100 mg PO DAILY 04/18/19 [History Confirmed 10/19/19] albuterol sulfate 2.5 mg INHALATION Q4H PRN ml 07/11/19 [History Confirmed 10/19/19] amlodipine 10 mg tablet 10 mg PO DAILY tab 07/11/19 [History Confirmed 10/19/19] carisoprodol 350 mg tablet 350 mg PO BID tab 07/11/19 [History Confirmed 10/19/19] dextroamphetamine-amphetamine ER 20 mg 24hr capsule,extend release 20 mg PO DAILY 07/11/19 [History Confirmed 10/19/19] dicyclomine 20 mg tablet 20 mg PO 4X/DAY PRN tab 07/11/19 [History Confirmed 10/19/19] hydrochlorothiazide 25 mg tablet 25 mg PO DAILY tab 07/11/19 [History Confirmed 10/19/19] ibuprofen 800 mg tablet 800 mg PO BID PRN tab 07/11/19 [History Confirmed 10/19/19] nystatin 100,000 unit/mL oral suspension 1 ml PO TID PRN ml 07/11/19 [History Confirmed 10/19/19] prednisone 10 mg tablet 10 mg PO DAILY PRN 07/11/19 [History Confirmed 10/19/19] venlafaxine 150 mg capsule,extended release 24 hr 150 mg PO DAILY cap 07/11/19 [History Confirmed 10/19/19] cetirizine 10 mg capsule 10 mg PO HS #30 cap 07/20/19 [Rx Confirmed 10/19/19] fluticasone propionate 50 mcg/actuation nasal spray,suspension 2 spray INTRANASAL DAILY #16 g 07/20/19 [Rx Confirmed 10/19/19] folic acid 1 mg tablet 1 mg PO DAILY 07/20/19 [History Confirmed 10/19/19] montelukast 10 mg tablet 10 mg PO QPM #30 tab 07/20/19 [Rx Confirmed 10/19/19] ipratropium 0.5 mg-albuterol 3 mg (2.5 mg base)/3 mL nebulization soln 3 ml INHALATION Q6H PRN #180 ml 08/05/19 [Rx Confirmed 10/19/19] albuterol sulfate 90 mcg/actuation aerosol inhaler 2 puff INHALATION Q4H PRN PRN #18 g 10/19/19 [Rx Confirmed 10/19/19] budesonide-formoterol HFA 160 mcg-4.5 mcg/actuation aerosol inhaler 2 puff INHALATION BID #1 device 10/19/19 [Rx Confirmed 10/19/19] tiotropium bromide 2.5 mcg/actuation mist for inhalation 2 puff INHALATION QDAY #1 ea 10/19/19 [Rx Confirmed 10/19/19] topiramate 25 mg capsule,extended release 24 hr 25 mg PO DAILY 10/24/19 [History Confirmed 10/24/19] PFS Medical History Essential hypertension (Chronic) [place] (obstructive sleep apnea) (Chronic) Ventral incisional hernia without obstruction or gangrene (Acute) Chronic back pain (Chronic) Asthma exacerbation in COPD (Acute) Back pain (Acute) Anxiety and depression (Chronic) GERD (gastroesophageal reflux disease) (Chronic) Osteoarthritis (Chronic) Rheumatoid arthritis (Chronic) Surgical History History of carpal tunnel release of both wrists (Resolved) History of section (Resolved) History of colonoscopy (Resolved ~2014) History of right hip replacement (Resolved) History of tonsillectomy (Resolved) Hx of fasciotomy (Resolved) Family History Mother Diabetes Heart disease Hypertension Kidney disease Social History (Updated 10/24/19 @ 15:59 by Ariane Black PA-C) Smoking Status: Former smoker Tobacco: How many years used: 28 how long ago did patient quit smokin years, 2015 second hand exposure: Yes alcohol intake: current alcohol intake frequency: a few times a month substance use type: does not use caffeine: Yes Type: carbonated beverages Number of servings: 1, coffee Number of servings: 3 HPI HPI HPI: GURINDER MCCRARY, is a 49 F who presents to the office today for HPI HPI Surgical H&P: Yes HPI: GURINDER MCCRARY, is a 49 F who presents to the office today for an update H&P for an elective incisional hernia repair. Patient denies recent hospitalizations or illnesses since her last office visit. She denies previous anesthesia side effects or complications. She denies increased pain at the hernia site. She notes more recent constipation. Patient does have COPD and HTN. She has been evaluated by her buildings and grounds coordinator and established with a reports analyst. She notes a previous . Patient's previous history per Dr. Johnson: GURINDER MCCRARY, is a 49 F who presents to the office today for surgical consultation regarding a ventral periumbilical incisional hernia. The patient is referred by Dr. Jeff Sorensen and a written compromise surgical consult recommendations will return to him. The patient actually has multiple various concerns. She has a bulging pain at the umbilical area she claims occasionally there is redness, numbness and tingling. She is stable to reduce it. She complains of gas bloat. She has some nausea. She has general feeling of unwellness. It is of note that July [address] scan of the abdomen. On my review she had a very small umbilical hernia at that time. Now it appears to have significantly enlarged in. The patient works at [employer]. She has significant COPD and asthma. She does not currently have a buildings and grounds coordinator. She states that she does not currently use tobacco. She notes that she has been having problems with breathing frequently. She states that over the years she has been on multiple courses of steroids. She states that this has caused her to increase weight. Current BMI is 43.1. ROS General General: Yes weight change and fatigue; no appetite, colon cancer, breast cancer or weakness HEENT HEENT: No difficulty swallowing, eye injury, eye surgery, swollen glands or hoarseness Endo Endocrine: No thyroid disease, diabetes mellitus, thyroid cancer, Hair loss, heat intolerance or cold intolerance Musc Musculoskeletal: Yes back problems, arthritis and rheumatoid arthritis; no gout or joint pain Cardio Cardiovascular: Yes high blood pressure; no murmur, pacemaker, heart disease, atrial fibrillation, heart attack, heart stent, palpitations, shortness of breat with exertion or chest pain Resp Respiratory: Yes shortness of breath, No sleep apnea, Yes cough, Yes COPD, Yes asthma, No emphysema, No wheezing Gastro Gastrointestinal: Yes abdominal pain, Yes nausea or vomiting, Yes diarrhea, Yes constipation, No blood in stool, Yes acid reflux, No hemorrhoids, No ulcers, No gallbladder problem, No black,tarry stools Deandre Hematologic: No blood thinners, No blood disorders, No bleeding, No anemia, No blood clots Neuro Neurologic: No weakness Exam Const General: cooperative, healthy appearing, comfortable, no acute distress Nutritional Appearance: obese [facility] Head: normal to inspection Eyes General: appearance normal, both eyes and all related structures Neck Neck: normal visual inspection Neck mass: No Resp Effort & Inspection: normal respiratory effort Auscultation: clear to auscultation bilaterally Cardio Rate: regular rate Rhythm: regular rhythm Heart Sounds: no murmurs GI Inspection: normal to inspection, obesity Palpation: soft, hernia (incisional ventral hernia) Skin General: no rashes or lesions noted Neuro General: no focal motor deficits, CN's II-XI intact bilaterally Extrem General: normal to inspection Psych Appearance: grossly normal Affect: normal affect Assessment & Plan Problems 1. Ventral incisional hernia without obstruction or gangrene K43.[address] Johnson will plan to perform an open possible conversion to laparoscopic ventral incisional hernia repair with preperitoneal mesh placement. Procedure details, risks and benefits have been reviewed with the patient. Patient has had the opportunity to ask and have questions answered. Patient verbally understands and agrees with the plan. Will reach out to pulmonary and cardiology to confirm patient is cleared for surgery. Coding Level of Care Code No Charge Diagnoses Ventral incisional hernia without obstruction or gangrene K43.2 10/24/19 1559 <Electronically signed by Ariane recio PA-C> Date _ I have re-examined the patient. There are no clinical changes since date of exam. Procedure Criteria Procedure Type: Elective COVID Risk Discussion: The surgeon/proceduralist and patient have discussed in detail the risk of exposure to and/or potential harm posed by the COVID-19 virus with having a surgery/procedure at this time versus the risk of delaying the surgery/p rocedure. It is not possible to know either the risk of delaying the surgery or procedure or chance of getting an infection with perfect accuracy, but a joint decision was made between the patient and the surgeon/proceduralist to proceed at this time with the scheduled surgery/procedure as indicated on the consent form.
--- NOTE | 2019-10-31 09:00 | DCINST_ITS ---
Discharge Diet: Light diet - advance as tolerated - if you have questions about your diet instructions, please talk to you doctor. Discharge Activity: May Not Drive - for 3-5 days or while taking narcotic pain medicine. May shower in (days): 1 Lifting Restrictions: 10 pounds Call your doctor if your incision/area has: Continuous Slow Oozing, Sudden Increased Bleeding, Increased Pain/ Swelling, Increased Redness, Foul Smelling Discharge Call your doctor if you observe: Fever of 101 or Higher Suture Line Care: Avoid Pulling/Pushing, Avoid Pinching/Bending Additional Dressing/Incision Instructions:: Change or remove dressing in 4 days. Leave steri-strips in place for 1 week. Allergies/Adverse Reactions: Allergies meloxicam [From Mobic] Allergy (Intermediate, Verified 10/27/19 13:13) nausea and vomiting Sulfa (Sulfonamide Antibiotics) Allergy (Verified 10/27/19 13:13) Hives levofloxacin [From Levaquin] Adverse Reaction (Verified 10/27/19 13:13) Other Medications to take at Discharge buspirone 15 mg tablet 15 mg PO BID PRN 04/18/19 hydroxyzine HCl 25 mg tablet 25 mg PO TID-QID PRN 04/18/19 lactobacillus combination no.8 3 billion cell capsule 3,000 mmu cells PO DAILY 04/18/19 lansoprazole 30 mg capsule,delayed release 30 mg PO DAILY 04/18/19 losartan 100 mg tablet 100 mg PO DAILY 04/18/19 albuterol sulfate 2.5 mg INHALATION Q4H PRN ml 07/11/19 amlodipine 10 mg tablet 10 mg PO DAILY tab 07/11/19 carisoprodol 350 mg tablet 350 mg PO BID tab 07/11/19 dextroamphetamine-amphetamine ER 20 mg 24hr capsule,extend release 30 mg PO DAILY 07/11/19 dicyclomine 20 mg tablet 20 mg PO 4X/DAY PRN tab 07/11/19 hydrochlorothiazide 25 mg tablet 25 mg PO DAILY tab 07/11/19 nystatin 100,000 unit/mL oral suspension 1 ml PO TID PRN ml 07/11/19 prednisone 10 mg tablet 10 mg PO DAILY PRN 07/11/19 venlafaxine 150 mg capsule,extended release 24 hr 150 mg PO DAILY cap 07/11/19 fluticasone propionate 50 mcg/actuation nasal spray,suspension 2 spray INTRANASAL DAILY #16 g 07/20/19 ipratropium 0.5 mg-albuterol 3 mg (2.5 mg base)/3 mL nebulization soln 3 ml INHALATION Q6H PRN #180 ml 08/05/19 albuterol sulfate 90 mcg/actuation aerosol inhaler 2 puff INHALATION Q4H PRN PRN #18 g 10/19/19 tiotropium bromide 2.5 mcg/actuation mist for inhalation 2 puff INHALATION QDAY #1 ea 10/19/19 topiramate 25 mg capsule,extended release 24 hr 50 mg PO DAILY 10/24/19 Budesonide/Formoterol 160/4.5 [Symbicort] 2 puff INHALATION BID 10/27/19 Cetirizine HCl [Wal-Zyr] 10 mg PO HS 10/27/19 Ergocalciferol [Vitamin D] 50,000 unit PO Q7D 10/27/19 Indomethacin 25 mg PO TID PRN PRN 10/27/19 Primary Care Physician: Jeff Sorensen MD [Primary Care Provider] - Test Results: Test results from this visit will be discussed in further detail at your follow- up appointment, if applicable. Please Follow Up With: Dennis Johnson MD - [phone] When: Call to make an appointment to be seen in about 10 days.
[2019-10-31] MEDS: Cefazolin 2 GM in 0.9% Normal Saline 100 ML IV (09:26)
[2019-10-31] MEDS: Bupivacaine 0.25% 30 ML Vial (09:40)
--- NOTE | 2019-10-31 10:17 | PCM.OPRPT ---
Problem List (1) Ventral incisional hernia without obstruction or gangrene Status: Acute Report of Operation Date of Procedure: 10/31/19 Pre-Operative Diagnosis: Symptomatic supraumbilical ventral hernia Post-Operative Diagnosis: Same Surgery/Procedure Performed:: Supraumbilical ventral herniorrhaphy with [address] mesh. Reference #[id number]. Lot number [id number]. Expiry date 06/07/2021 Description of Surgical Findings:: Timeout and informed consent was obtained. 49-year-old female was taken to the operating placed supine on the table underwent general endotracheal intubation esthesia. Ancef 2 g were given intravenously. The abdomen was sterilely prepped and draped. 0.5% Marcaine was used as a local anesthetic. Throughout the procedure total 30 cc was used. Skin sites were pre-anesthetized. A supraumbilical transverse incision was created sharp and blunt dissection medially identified a reasonable sized hernia sac. This was dissected free. It appeared to emanate from the defect superior to the umbilicus. The peritoneum was completely dissected free the sac was open I then created a peritoneal space completely dissecting the peritoneum circumferentially around the defect. Carefully inspected that there was only omentum currently involved was able to completely reduce that. Having then circumferentially dissected free I then closed the sac with a 0 Vicryl suture ligature. I reduce the sac and then placed a 8 cm ventralex mesh.. That nicely positioned in the preperitoneal space. The defect was then closed transversely with multiple simple sutures of 0 Nurolon. With many of those sutures I further secured the mesh by incorporating the midportion of the mesh and the suture. Additionally the lateral tails were secured in place with 0 Nurolon. Excellent coverage and closure was felt to been achieved. The subcutaneous tissues approximate interrupted 4-0 Monocryl. The skin edges were approximated with a running septic or 4-0 Monocryl. Steri-Strips Telfa and OpSite dressing was applied. Sponge and instrument and needle counts were reported to the surgeon to be correct. Blood loss was minimal. No specimens. No drains. Blood loss minimal. The patient was taken to the recovery area in satisfactory addition without apparent complication. Dennis Johnson M.D., F.A.C.S. Type of Anesthesia:: General Anesthesiologist: Tomas Chapman
== END 2019-10-31 12:16 | disposition home or self-care (01) ==
LOC: SDC 07:29 → AC 07:30
PROVIDERS: Anesthesiology; PCP Family Medicine; Referring Provider Surgery; Visit Provider Surgery
PROC: 0WQF4ZZ Repair Abdominal Wall, Percutaneous Endoscopic Approach (ICD-10-PCS; CPT 49560; principal; 2019-10-31 09:15)
DX: K43.2 Incisional hernia without obstruction or gangrene (principal); I10 Essential (primary) hypertension; J44.9 Chronic obstructive pulmonary disease, unspecified; G47.33 Obstructive sleep apnea (adult) (pediatric); M54.9 Dorsalgia, unspecified; G89.29 Other chronic pain; F41.9 Anxiety disorder, unspecified; F32.9 Major depressive disorder, single episode, unspecified; K21.9 Gastro-esophageal reflux disease without esophagitis; M19.90 Unspecified osteoarthritis, unspecified site; M06.9 Rheumatoid arthritis, unspecified; Z79.899 Other long term (current) drug therapy; Z87.891 Personal history of nicotine dependence
CPT/HCPCS: 49560; 49568; 36415; 80048; 80076; 81025; 85027; 85610; 85730; 87635; G2023; J7120; C1781; J2405; U0003

== ENCOUNTER → 2020-06-01 11:43 | Outpatient (CLI) | payer OTHER, SELFPAY ==
[2019-10-31 07:52] VITALS: BMI 44.1
[2020-06-01 15:19] LABS: Absolute Lymphocyte Count 1.32 X10^3/uL (0.83-4.51); Absolute Neutrophil Count 4.5 X10^3/uL (2.0-7.7); Basophil# 0.04 X10^3/uL; Basophil% 0.6 % (0-1); Eosinophil# 0.16 X10^3/uL; Eosinophils% 2.4 % (0-5); Hematocrit 39.6 % (37-47); Hemoglobin 12.4 g/dL (12.0-15.0); Lymphocyte # 1.32 X10^3/ul (4.0); Lymphocyte % 20.1 % (19-41); Mean Corp Hgb Conc 31.3 g/dL (32-36); Mean Corpuscular Hgb 26.7 pg (27.0-32.0); Mean Corpuscular Volume 85.2 fL (81-99); Mean Platelet Vol. 9.6 fl (6.2-12.0); Monocyte# 0.57 X10^3/uL; Monocyte% 8.7 % (0-10); NRBC Flagged by Analyzer 0 % (0-5); Neutrophil # 4.45 X10^3/uL (2.7-7.7); Neutrophil % 67.6 % (47-70); Platelet Count 422 K/mm3 (150-450); RBC Distribution Width CV 15.9 % (11.6-14.6); RBC Distribution Width SD 48.7 fl (35.1-43.9); Red Blood Count 4.65 M/mm3 (4.2-5.4); White Blood Count 6.6 K/mm3 (4.4-11.0)
[2020-06-01 15:43] LABS: Vitamin B12 437 pg/mL (211-911); Vitamin D,25 Hydroxy 15.8 ng/mL
[2020-06-01 16:07] LABS: AST(SGOT) 25 U/L (15-37); Alanine Aminotransfer ALT/SGPT 38 U/L (13-56); Albumin, Serum 3.7 g/dL (3.2-5.0); Alkaline Phosphatase 96 U/L (45-117); Anion Gap 5 (5-15); BUN 11 mg/dL (7-18); BUN/Creat Ratio 14.4 RATIO (10-20); Calcium,Total 8.6 mg/dL (8.5-10.1); Chloride 103 mmol/L (98-107); Creatinine, Serum 0.77 mg/dL (0.55-1.02); EST Glomerular Filtration Rate 85 mL/min (>60); Est Glom Filt Rate - Afr Amer 103 mL/min (>60); Globulin 3.8 g/dL (2.2-4.2); Glucose 80 mg/dL (74-106); Potassium 3.7 mmol/L (3.5-5.1); Protein, Total 7.5 g/dL (6.4-8.2); Sodium Level 135 mmol/L (136-145); Thyroid Stim Hormone (TSH) 1.25 uIU/mL (0.358-3.74)
== END ==
PROVIDERS: PCP Family Medicine; Referring Provider Family Medicine; Visit Provider Family Medicine
DX: R53.83 Other fatigue (principal)
CPT/HCPCS: 36415; 80053; 82306; 82607; 84443; 85025

== ENCOUNTER → 2020-08-28 18:21 | Outpatient (CLI) | payer OTHER, SELFPAY | PROVIDERS: PCP Family Medicine; Referring Provider Family Medicine; Visit Provider Family Medicine | DX: J06.9 Acute upper respiratory infection, unspecified (principal) | CPT/HCPCS: 87635; U0002 ==

== ENCOUNTER → 2020-10-29 16:44 | Outpatient (CLI) | payer OTHER, SELFPAY | PROVIDERS: PCP Family Medicine; Visit Provider Family Medicine | DX: Z20.822 Contact with and (suspected) exposure to COVID-19 (principal) | CPT/HCPCS: 87635; U0005; U0003 ==

== ENCOUNTER → 2020-11-06 10:53 | Outpatient (CLI) | payer OTHER, SELFPAY ==
--- NOTE | 2020-11-06 10:55 | RAD_ITS ---
STUDY: X-RAY CHEST REASON FOR EXAM: Female, 50 years old. Cough, wheezing TECHNIQUE: PA and lateral views of the chest. COMPARISON: Comparison is made with prior study of 08/03/2019 FINDINGS: The lungs are clear and expanded. There is no demonstrated pleural abnormality. Normal size heart. Normal mediastinum and chris. Normal visualized pulmonary arteries. Normal visualized aortic arch and descending thoracic aorta. There are mild degenerative changes of the visualized thoracic spine. Normal visualized ribs, clavicles, and shoulders. There is no demonstrated abnormality of the visualized soft tissue structures of the upper abdomen. RAD/Chest PA and Lateral IMPRESSION: Normal x-ray examination of the chest. Electronically Signed: Darnell Infante MD at 11:52 EDT , Service support ,
== END ==
PROVIDERS: PCP Family Medicine; Referring Provider Family Medicine; Visit Provider Family Medicine
DX: R05 Cough (principal)
CPT/HCPCS: 71046

== ENCOUNTER → 2021-01-11 10:28 | Outpatient (CLI) | payer OTHER, SELFPAY ==
[2021-01-11 12:10] LABS: Absolute Neutrophil Count 9.1 X10^3/uL (2.0-7.7); Basophil# 0.06 X10^3/uL; Basophil% 0.5 % (0-1); Eosinophil# 0.09 X10^3/uL; Eosinophils% 0.8 % (0-5); Hematocrit 41.1 % (37-47); Hemoglobin 13.1 g/dL (12.0-15.0); Mean Corp Hgb Conc 31.9 g/dL (32-36); Mean Corpuscular Hgb 25.9 pg (27.0-32.0); Mean Corpuscular Volume 81.2 fL (81-99); Mean Platelet Vol. 9.4 fl (6.2-12.0); Monocyte% 5.9 % (0-10); NRBC Flagged by Analyzer 0 % (0-5); Neutrophil # 9.06 X10^3/uL (2.7-7.7); Neutrophil % 76.2 % (47-70); Platelet Count 471 K/mm3 (150-450); RBC Distribution Width CV 16.3 % (11.6-14.6); RBC Distribution Width SD 48.3 fl (35.1-43.9); Red Blood Count 5.06 M/mm3 (4.2-5.4); White Blood Count 11.9 K/mm3 (4.4-11.0)
[2021-01-11 12:13] LABS: Erythrocyte Sedimentation Rate 22 mm/hr (0-30)
[2021-01-11 12:23] LABS: AST(SGOT) 13 U/L (15-37); Alanine Aminotransfer ALT/SGPT 27 U/L (13-56); Albumin, Serum 3.8 g/dL (3.2-5.0); Alkaline Phosphatase 83 U/L (45-117); Anion Gap 7 (5-15); BUN 13 mg/dL (7-18); BUN/Creat Ratio 15.6 RATIO (10-20); Calcium,Total 8.7 mg/dL (8.5-10.1); Chloride 100 mmol/L (98-107); Creatinine, Serum 0.83 mg/dL (0.55-1.02); EST Glomerular Filtration Rate 78 mL/min (>60); Est Glom Filt Rate - Afr Amer 94 mL/min (>60); Globulin 3.9 g/dL (2.2-4.2); Glucose 91 mg/dL (74-106); Potassium 3.6 mmol/L (3.5-5.1); Protein, Total 7.7 g/dL (6.4-8.2); Sodium Level 135 mmol/L (136-145)
[2021-01-18 03:07] LABS: QNTFERON TB Mitogen Value > 10.00 IU/mL (.); QNTFERON TB Nil Value 0.03 IU/mL (.); QNTFERON TB1+ Ag Value 0.04 IU/mL (.); QNTFERON TB2+ Ag Value 0.05 IU/mL (.)
[2021-01-18 07:44] LABS: QNTIFERON TB Positive Criteria Negative (Negative)
== END ==
PROVIDERS: PCP Family Medicine; Referring Provider Internal Medicine Rheumatology; Visit Provider Internal Medicine Rheumatology
DX: M06.4 Inflammatory polyarthropathy (principal); Z79.899 Other long term (current) drug therapy; M79.7 Fibromyalgia; M21.40 Flat foot [pes planus] (acquired), unspecified foot; M17.0 Bilateral primary osteoarthritis of knee; K21.9 Gastro-esophageal reflux disease without esophagitis; I10 Essential (primary) hypertension; J44.9 Chronic obstructive pulmonary disease, unspecified; I83.93 Asymptomatic varicose veins of bilateral lower extremities
CPT/HCPCS: 36415; 80053; 85025; 85652; 86140; 86480

== ENCOUNTER → 2021-03-19 11:27 | Outpatient (CLI) | payer OTHER, SELFPAY ==
[2021-03-19 14:57] LABS: Absolute Lymphocyte Count 1.44 X10^3/uL (0.83-4.51); Basophil# 0.06 X10^3/uL; Basophil% 0.9 % (0-1); Eosinophil# 0.16 X10^3/uL; Eosinophils% 2.5 % (0-5); Hematocrit 37.6 % (37-47); Hemoglobin 12.2 g/dL (12.0-15.0); Lymphocyte # 1.44 X10^3/ul (0.83-4.51); Lymphocyte % 22.6 % (19-41); Mean Corp Hgb Conc 32.4 g/dL (32-36); Mean Corpuscular Hgb 26.4 pg (27.0-32.0); Mean Corpuscular Volume 81.4 fL (81-99); Mean Platelet Vol. 9.4 fl (6.2-12.0); Monocyte# 0.66 X10^3/uL; Monocyte% 10.4 % (0-10); NRBC Flagged by Analyzer 0 % (0-5); Neutrophil # 4.03 X10^3/uL (2.7-7.7); Neutrophil % 63.3 % (47-70); Platelet Count 384 K/mm3 (150-450); RBC Distribution Width CV 16.7 % (11.6-14.6); RBC Distribution Width SD 49.2 fl (35.1-43.9); Red Blood Count 4.62 M/mm3 (4.2-5.4); White Blood Count 6.4 K/mm3 (4.4-11.0)
[2021-03-19 15:21] LABS: AST(SGOT) 16 U/L (15-37); Alanine Aminotransfer ALT/SGPT 25 U/L (13-56); Albumin, Serum 3.7 g/dL (3.2-5.0); Alkaline Phosphatase 60 U/L (45-117); Anion Gap 8 (5-15); BUN 12 mg/dL (7-18); BUN/Creat Ratio 13.3 RATIO (10-20); Calcium,Total 9.3 mg/dL (8.5-10.1); Chloride 99 mmol/L (98-107); EST Glomerular Filtration Rate 71 mL/min (>60); Est Glom Filt Rate - Afr Amer 85 mL/min (>60); Globulin 3.6 g/dL (2.2-4.2); Glucose 96 mg/dL (74-106); Potassium 3.3 mmol/L (3.5-5.1); Protein, Total 7.3 g/dL (6.4-8.2); Sodium Level 134 mmol/L (136-145)
== END ==
PROVIDERS: PCP Family Medicine; Referring Provider Internal Medicine Rheumatology; Visit Provider Internal Medicine Rheumatology
DX: M06.4 Inflammatory polyarthropathy (principal); Z79.899 Other long term (current) drug therapy; M79.7 Fibromyalgia; M21.40 Flat foot [pes planus] (acquired), unspecified foot; M17.0 Bilateral primary osteoarthritis of knee; K21.9 Gastro-esophageal reflux disease without esophagitis; I10 Essential (primary) hypertension; J44.9 Chronic obstructive pulmonary disease, unspecified; I83.93 Asymptomatic varicose veins of bilateral lower extremities
CPT/HCPCS: 36415; 80053; 85025

== ENCOUNTER 2021-07-23 12:44 | Emergency (ER) | payer SELFPAY ==
[2021-07-23 12:45] VITALS: BP 169/102; PULSE 87; RESP 14; TEMP 36.2; O2SAT 93; BMI 41.8
--- NOTE | 2021-07-23 13:02 | CT_ITS ---
INDICATION: Left abdomen pain. EXAMINATION: CT ABDOMEN AND PELVIS WITH CONTRAST - CT Abdomen And Pelvis W/ Contrast Injection TECHNIQUE: Helically acquired images were obtained of the abdomen and pelvis following IV contrast. A radiation dose optimization technique was used for this scan. IV Contrast dosage and agent: 75 cc [id number] Oral contrast: None. COMPARISON: CT abdomen and pelvis with contrast from 12/18/2014 FINDINGS: Lower thorax: Visualized lung bases are clear. Liver: Cirrhotic morphology. No hepatic masses. No acute findings. Gallbladder: Normal appearance. No significant bile duct dilation. Spleen: Unremarkable. Pancreas: No focal parenchymal lesions. No duct dilation. Adrenal glands: Unremarkable. Kidneys: No cystic or solid masses. No hydronephrosis. No acute findings. Bladder: Underdistended but no acute findings. GI tract: No significant wall thickening or bowel dilation. Normal appendix. No acute findings. Peritoneum/mesentery/retroperitoneum: No free air or free fluid. No lymphadenopathy. Pelvis: No free air or free fluid. Vasculature: Arterial atherosclerotic disease. No acute findings. Bones/soft tissues: No acute fracture or subluxation. Remote right-sided rib fractures. Intact appearance of right hip total arthroplasty surgical hardware. Metallic streak artifact from the surgical hardware summative Quintanilla assessment of the adjacent structures. No destructive osseous lesions. Soft tissues are unremarkable. CT/Abdomen/Pelvis W IV Cont ONLY IMPRESSION: No acute findings. Electronically Signed: Maninder Chapa, at 14:44 EDT ,
--- NOTE | 2021-07-23 13:03 | ED.VIS.GI ---
HPI <Feliz Jules MD - Last Filed: 07/23/21 15:02> HPI - GI History of Present Illness Chief Complaint: Abd Pain Narrative Narrative: Patient presents with abdominal plain and bloating that she has had since 7 AM, approximately 6 hours ago. She states she was at work and became overheated. She has had abdominal bloating and left lower quadrant/flank pain. She states she has vomited at least 5 times without any blood in her emesis. She denies any problems with urination, no dysuria or hematuria. No problems with bowel movements such as diarrhea or blood in her stool. Past surgical history includes hernia repair performed by Dr. Johnson in 2020. She denies any exacerbating or alleviating factors. [facility] <Feliz Jules MD - Last Filed: 07/23/21 15:02> [facility] Medical History Anxiety and depression Asthma exacerbation in COPD Back pain Chronic back pain Essential hypertension GERD (gastroesophageal reflux disease) [place] (obstructive sleep apnea) Osteoarthritis Rheumatoid arthritis Ventral incisional hernia without obstruction or gangrene Home Medications buspirone 15 mg tablet 15 mg PO BID PRN 04/18/19 [History Last Taken Unknown] hydroxyzine HCl 25 mg tablet 25 mg PO TID-QID PRN 04/18/19 [History Last Taken Unknown] lactobacillus combination no.8 3 billion cell capsule 3,000 mmu cells PO DAILY 04/18/19 [History Last Taken Unknown] lansoprazole 30 mg capsule,delayed release 30 mg PO DAILY 04/18/19 [History Last Taken 10/31/19 06:00 30 MG] losartan 100 mg tablet 100 mg PO DAILY 04/18/19 [History Last Taken 10/31/19 06:00 100 MG] albuterol sulfate 2.5 mg INHALATION Q4H PRN ml 07/11/19 [History Last Taken Unknown] amlodipine 10 mg tablet 10 mg PO DAILY tab 07/11/19 [History Last Taken 10/31/19 06:00 10 MG] carisoprodol 350 mg tablet 350 mg PO BID tab 07/11/19 [History Last Taken Unknown] dextroamphetamine-amphetamine ER 20 mg 24hr capsule,extend release 30 mg PO DAILY 07/11/19 [History Last Taken Unknown] dicyclomine 20 mg tablet 20 mg PO 4X/DAY PRN tab 07/11/19 [History Last Taken Unknown] hydrochlorothiazide 25 mg tablet 25 mg PO DAILY tab 07/11/19 [History Last Taken Unknown] nystatin 100,000 unit/mL oral suspension 1 ml PO TID PRN ml 07/11/19 [History Last Taken Unknown] prednisone 10 mg tablet 10 mg PO DAILY PRN 07/11/19 [History Last Taken Unknown] ipratropium 0.5 mg-albuterol 3 mg (2.5 mg base)/3 mL nebulization soln 3 ml INHALATION Q6H PRN #180 ml 08/05/19 [Rx Last Taken Unknown] tiotropium bromide 2.5 mcg/actuation mist for inhalation 2 puff INHALATION QDAY #1 ea 10/19/19 [Rx Last Taken Unknown] ergocalciferol (vitamin D2) 50,000 unit PO Q7D 10/27/19 [History Last Taken Unknown] indomethacin 25 mg PO TID PRN PRN 10/27/19 [History Last Taken Unknown] cetirizine 10 mg capsule 10 mg PO HS #30 cap 12/02/19 [Rx Last Taken Unknown] fluticasone propionate 50 mcg/actuation nasal spray,suspension 2 spray INTRANASAL DAILY #16 g 02/07/20 [Rx Last Taken Unknown] budesonide-formoterol HFA 160 mcg-4.5 mcg/actuation aerosol inhaler 2 puff INHALATION BID #10.2 g 11/27/20 [Rx Last Taken Unknown] albuterol sulfate 90 mcg/actuation aerosol inhaler 2 puff INHALATION Q4H PRN PRN #18 g 03/27/21 [Rx Last Taken Unknown] ondansetron 4 mg PO Q8H PRN #10 tab 07/23/21 [Rx Last Taken Unknown] Allergy/AdvReac Type Severity Reaction Status Date / Time meloxicam [From Mobic] Allergy Intermediate nausea and Verified 07/23/21 12:44 vomiting Sulfa (Sulfonamide Allergy Hives Verified 07/23/21 12:44 Antibiotics) levofloxacin [From Levaquin] AdvReac Other Verified 07/23/21 12:44 Family History Mother Diabetes Heart disease Hypertension Kidney disease Surgical History History of carpal tunnel release of both wrists History of section History of colonoscopy (~2014) History of right hip replacement History of tonsillectomy Hx of fasciotomy Hx of ventral hernia repair Social History Smoking Status: Light Smoker (<10/day) Tobacco: How many years used: 28 how long ago did patient quit smokin years, 2016 second hand exposure: Yes alcohol intake: current alcohol intake frequency: a few times a month substance use type: does not use caffeine: Yes Type: carbonated beverages Number of servings: 1 and coffee Number of servings: 3 ROS <Feliz Jules MD - Last Filed: 07/23/21 15:02> ROS ED ROS Narrative Constitutional: No fever, no chills. HEENT: No sore throat. No neck pain. No loss of vision. No rhinorrhea. Cardiovascular: No chest pain. No palpitations. No pedal edema. Respiratory: No cough, no shortness of breath. Abdominal: Positive diffuse abdominal pain and in left lower quadrant with abdominal bloating. Positive nausea with 5 episodes of nonbloody vomiting. Genitourinary: No dysuria. No hematuria. Musculoskeletal: No myalgias. No arthralgias. Neurologic: No headaches. No dizziness. No lightheadedness. Skin: No rash. No change in color. Psychiatric: No depression. No anxiety. EXAM <Feliz Jules MD - Last Filed: 07/23/21 15:02> Physical Exam Narrative Exam Narrative: Afebrile. Vital signs noted. HEENT: Normocephalic. Atraumatic. PERRL, EOMI. Neck soft and supple. No point tenderness or step off. Cardiovascular: Regular rate and rhythm. No murmurs, rubs, or gallops appreciated. Respiratory: No tachypnea. Lungs clear to auscultation bilaterally. Gastrointestinal: Abdomen soft, with diffuse tenderness, concentrated left lower quadrant and left flank, with normoactive bowel sounds. No rebound or guarding. Neurological: Awake. Alert. Nonfocal, nonlateralizing. Skin: No rash. Normal color. No pallor. Musculoskeletal: No pedal edema. Full range of motion extremities. Const Vital Signs: 07/23/21 12:45 07/23/21 13:28 Temperature 97.2 F L Temperature Source Temporal Pulse Rate 87 91 Respiratory Rate 14 18 Blood Pressure 169/102 H 132/76 H Blood Pressure Mean 124 94 Pulse Ox 93 94 Oxygen Delivery Method Room Air Room Air <Dr. Viv Smith MD - Last Filed: 07/23/21 15:38> Physical Exam Const Vital Signs: 07/23/21 12:45 07/23/21 13:28 Temperature 97.2 F L Temperature Source Temporal Pulse Rate 87 91 Respiratory Rate 14 18 Blood Pressure 169/102 H 132/76 H Blood Pressure Mean 124 94 Pulse Ox 93 94 Oxygen Delivery Method Room Air Room Air MDM <Feliz Jules MD - Last Filed: 07/23/21 15:02> MDM MDM Narrative Medical decision making narrative: Comprehensive work-up was pursued. She was administered morphine and ondansetron along with a bolus of normal saline. I will obtain basic laboratory work and CT of the abdomen and pelvis with IV contrast. She has an elevated white count of 19.5, hemoglobin normal at 14.9, platelet count normal at 444. Sodium slightly low 132. Potassium also slightly low at 3.4. While chloride is low at 97, she has been bolused normal saline. BUN elevated at 26 with a creatinine of 1.8. Lipase normal. Serum test is negative. Her CT of the abdomen and pelvis shows no acute process. RN ordered EKG which demonstrates sinus tachycardia 104 bpm with PACs but no acute ST changes. No STEMI. Given her dehydration and acute kidney injury, I will discuss patient with her primary care physician, or whoever is on-call so as to repeat her laboratory work in the next few days. I feel she be discharged safely home with follow-up. She will be signed out to the oncoming physician, Dr. Viv Smith, to check the urinalysis and dispense antibiotics appropriately. Patient is in stable conditon. Lab Data Attestation: I reviewed the patient's lab results. Labs: Laboratory Results - last 24 hr 07/23/21 07/23/21 07/23/21 13:15 13:15 13:25 WBC 19.5 H RBC 5.10 Hgb 14.9 Hct 43.2 MCV 84.7 MCH 29.2 MCHC 34.5 RDW Std Deviation 49.5 H RDW Coeff of Kofi 16.3 H Plt Count 444 MPV 8.8 Immature Gran % (Auto) 1.500 H Neut % (Auto) 82.6 H Lymph % (Auto) 10.1 L [place] % (Auto) 5.5 Eos % (Auto) 0.1 Baso % (Auto) 0.2 Absolute Neuts (auto) 16.1 H Absolute Lymphs (auto) 1.98 Nucleated RBC % 0 Sodium 132 L Potassium 3.4 L Chloride 97 L Carbon Dioxide 25.0 Anion Gap 10 BUN 26 H Creatinine 1.83 H Estim Creat Clear Calc 30.76 Est GFR (MDRD) Af Amer 38 L Est GFR (MDRD) Non-Af 31 L BUN/Creatinine Ratio 14.2 Glucose 114 H Calcium 9.9 Total Bilirubin 0.40 AST 19 ALT 27 Alkaline Phosphatase 95 Total Protein 8.1 Albumin 4.3 Globulin 3.8 Albumin/Globulin Ratio 1.1 Lipase 128 Serum , Qual NEGATIVE Urine Color Urine Clarity Urine pH Ur Specific [place] Urine Protein Urine Glucose (UA) Urine Ketones Urine Occult Blood Urine Nitrite Urine Bilirubin Urine Urobilinogen Ur Leukocyte Esterase Urine RBC Urine WBC Ur Squamous Epith Cells Urine Bacteria Urine Mucus 07/23/21 15:05 WBC RBC Hgb Hct MCV MCH MCHC RDW Std Deviation RDW Coeff of Kofi Plt Count MPV Immature Gran % (Auto) Neut % (Auto) Lymph % (Auto) [place] % (Auto) Eos % (Auto) Baso % (Auto) Absolute Neuts (auto) Absolute Lymphs (auto) Nucleated RBC % Sodium Potassium Chloride Carbon Dioxide Anion Gap BUN Creatinine Estim Creat Clear Calc Est GFR (MDRD) Af Amer Est GFR (MDRD) Non-Af BUN/Creatinine Ratio Glucose Calcium Total Bilirubin AST ALT Alkaline Phosphatase Total Protein Albumin Globulin Albumin/Globulin Ratio Lipase Serum , Qual Urine Color Yellow Urine Clarity Clear Urine pH 6.0 Ur Specific [place] 1.010 Urine Protein Negative Urine Glucose (UA) Normal Urine Ketones Negative Urine Occult Blood Negative Urine Nitrite Negative Urine Bilirubin Negative Urine Urobilinogen Normal Ur Leukocyte Esterase Negative Urine RBC 0 SEEN Urine WBC 0 SEEN Ur Squamous Epith Cells 0 SEEN Urine Bacteria 0 SEEN Urine Mucus 0 SEEN Radiography Diagnostic Testing: Clinical Impression(s) from Imaging Studies Abdomen/Pelvis CT 07/23/21 13:02 IMPRESSION: No acute findings. Electronically Signed: Maninder Chapa, at 14:44 EDT , <Dr. Viv Smith MD - Last Filed: 07/23/21 15:38> [facility] Lab Data Labs: Laboratory Results - last 24 hr 07/23/21 07/23/21 07/23/21 13:15 13:15 13:25 WBC 19.5 H RBC 5.10 Hgb 14.9 Hct 43.2 MCV 84.7 MCH 29.2 MCHC 34.5 RDW Std Deviation 49.5 H RDW Coeff of Kofi 16.3 H Plt Count 444 MPV 8.8 Immature Gran % (Auto) 1.500 H Neut % (Auto) 82.6 H Lymph % (Auto) 10.1 L [place] % (Auto) 5.5 Eos % (Auto) 0.1 Baso % (Auto) 0.2 Absolute Neuts (auto) 16.1 H Absolute Lymphs (auto) 1.98 Nucleated RBC % 0 Sodium 132 L Potassium 3.4 L Chloride 97 L Carbon Dioxide 25.0 Anion Gap 10 BUN 26 H Creatinine 1.83 H Estim Creat Clear Calc 30.76 Est GFR (MDRD) Af Amer 38 L Est GFR (MDRD) Non-Af 31 L BUN/Creatinine Ratio 14.2 Glucose 114 H Calcium 9.9 Total Bilirubin 0.40 AST 19 ALT 27 Alkaline Phosphatase 95 Total Protein 8.1 Albumin 4.3 Globulin 3.8 Albumin/Globulin Ratio 1.1 Lipase 128 Serum , Qual NEGATIVE Urine Color Urine Clarity Urine pH Ur Specific [place] Urine Protein Urine Glucose (UA) Urine Ketones Urine Occult Blood Urine Nitrite Urine Bilirubin Urine Urobilinogen Ur Leukocyte Esterase Urine RBC Urine WBC Ur Squamous Epith Cells Urine Bacteria Urine Mucus 07/23/21 15:05 WBC RBC Hgb Hct MCV MCH MCHC RDW Std Deviation RDW Coeff of Kofi Plt Count MPV Immature Gran % (Auto) Neut % (Auto) Lymph % (Auto) [place] % (Auto) Eos % (Auto) Baso % (Auto) Absolute Neuts (auto) Absolute Lymphs (auto) Nucleated RBC % Sodium Potassium Chloride Carbon Dioxide Anion Gap BUN Creatinine Estim Creat Clear Calc Est GFR (MDRD) Af Amer Est GFR (MDRD) Non-Af BUN/Creatinine Ratio Glucose Calcium Total Bilirubin AST ALT Alkaline Phosphatase Total Protein Albumin Globulin Albumin/Globulin Ratio Lipase Serum , Qual Urine Color Yellow Urine Clarity Clear Urine pH 6.0 Ur Specific [place] 1.010 Urine Protein Negative Urine Glucose (UA) Normal Urine Ketones Negative Urine Occult Blood Negative Urine Nitrite Negative Urine Bilirubin Negative Urine Urobilinogen Normal Ur Leukocyte Esterase Negative Urine RBC 0 SEEN Urine WBC 0 SEEN Ur Squamous Epith Cells 0 SEEN Urine Bacteria 0 SEEN Urine Mucus 0 SEEN Radiography Diagnostic Testing: Clinical Impression(s) from Imaging Studies Abdomen/Pelvis CT 07/23/21 13:02 IMPRESSION: No acute findings. Electronically Signed: Maninder Chapa, at 14:44 EDT , Treatment and Re-Evaluation Narrative: Patient signed out to me pending urinalysis. Urinalysis returns with no sign of acute infection. On repeat evaluation patient resting comfortably. I will send a prescription for Zofran to the pharmacy for her as needed. She knows to follow-up in the next 4 to 7 days for repeat labs. Discharge Plan Triage Chief Complaint: Abd Pain ED Provider: Feliz Jules Dx/Rx/DC Orders Clinical Impression: Abdominal pain, Acute kidney injury, Dehydration, Leukocytosis Instructions: ED Abdominal Pain Unkn Cause Fem, ED Dehydration (Adult) Prescriptions: New ondansetron 4 mg tablet,disintegrating 4 mg PO Q8H PRN (Reason: nausea and vomiting) Qty: 10 RF: 0 No Action hydroxyzine HCl 25 mg tablet 25 mg PO TID-QID PRN (Reason: anxiety/hives) RF: 0 lansoprazole [Prevacid] 30 mg capsule,delayed release(DR/EC) 30 mg PO DAILY RF: 0 losartan 100 mg tablet 100 mg PO DAILY RF: 0 buspirone 15 mg tablet 15 mg PO BID PRN (Reason: Anxiety) RF: 0 Adult Probiotic 3 billion cell capsule 3,000 mmu cells PO DAILY RF: 0 hydrochlorothiazide 25 mg tablet 25 mg PO DAILY RF: 0 prednisone 10 mg tablet 10 mg PO DAILY PRN (Reason: arthritis) RF: 0 amlodipine 10 mg tablet 10 mg PO DAILY RF: 0 dicyclomine 20 mg tablet 20 mg PO 4X/DAY PRN (Reason: stomach) RF: 0 nystatin 100,000 unit/mL suspension 1 ml PO TID PRN (Reason: thrush from symbicort) RF: 0 dextroamphetamine-amphetamine [Adderall XR] 20 mg capsule,extended release 24hr 30 mg PO DAILY RF: 0 albuterol sulfate 2.5 mg /3 mL (0.083 %) solution for nebulization 2.5 mg inhalation Q4H PRN (Reason: DYSPNEA, WHEEZING) RF: 0 Spiriva Respimat 2.5 mcg/actuation mist 2 puff INHALATION QDAY Qty: 1 RF: 11 budesonide-formoterol [Symbicort] 160-4.5 mcg/actuation HFA aerosol inhaler 2 puff inhalation BID Qty: 10.2 RF: 6 carisoprodol 350 mg tablet 350 mg PO BID RF: 0 ergocalciferol (vitamin D2) 50,000 UNIT capsule 50,000 unit PO Q7D RF: 0 indomethacin 25 MG capsule 25 mg PO TID PRN PRN (Reason: Pain Or Fever) RF: 0 ipratropium-albuterol 0.5 mg-3 mg(2.5 mg base)/3 mL solution for nebulization 3 ml INHALATION Q6H PRN (Reason: shortness of breath or wheezing) Qty: 180 RF: 6 cetirizine 10 mg capsule 10 mg PO HS Qty: 30 RF: 6 fluticasone propionate 50 mcg/actuation spray,suspension 2 spray INTRANASAL DAILY Qty: 16 RF: 3 albuterol sulfate 90 mcg/actuation HFA aerosol inhaler 2 puff inhalation Q4H PRN PRN (Reason: shortness of breath or wheezing) Qty: 18 RF: 11 Primary Care Provider: Luis A Stevens Referrals: Luis A Stevens MD [Primary Care Provider] - 5-7 Days Disposition Disposition: Home, Self Care
[2021-07-23] MEDS: Ondansetron 4 MG/2 ML Vial IV (13:14)
[2021-07-23] MEDS: Morphine 4 MG/ML Syringe IV (13:14)
[2021-07-23] MEDS: 0.9% Normal Saline 1,000 ML 1000 ML IV (13:14)
[2021-07-23 13:26] LABS: Absolute Lymphocyte Count 1.98 X10^3/uL (0.83-4.51); Absolute Neutrophil Count 16.1 X10^3/uL (2.0-7.7); Basophil# 0.04 X10^3/uL; Basophil% 0.2 % (0-1); Eosinophil# 0.01 X10^3/uL; Eosinophils% 0.1 % (0-5); Hematocrit 43.2 % (37-47); Hemoglobin 14.9 g/dL (12.0-15.0); Lymphocyte # 1.98 X10^3/ul (0.83-4.51); Lymphocyte % 10.1 % (19-41); Mean Corp Hgb Conc 34.5 g/dL (32-36); Mean Corpuscular Hgb 29.2 pg (27.0-32.0); Mean Corpuscular Volume 84.7 fL (81-99); Mean Platelet Vol. 8.8 fl (6.2-12.0); Monocyte# 1.07 X10^3/uL; Monocyte% 5.5 % (0-10); NRBC Flagged by Analyzer 0 % (0-5); Neutrophil # 16.13 X10^3/uL (2.7-7.7); Neutrophil % 82.6 % (47-70); Platelet Count 444 K/mm3 (150-450); RBC Distribution Width CV 16.3 % (11.6-14.6); RBC Distribution Width SD 49.5 fl (35.1-43.9); White Blood Count 19.5 K/mm3 (4.4-11.0)
[2021-07-23 13:28] VITALS: BP 132/76; PULSE 91; RESP 18; O2SAT 94
[2021-07-23 13:49] LABS: Internal QC Validated? YES +Cl - CLEAR BKGD; Pregnancy, Serum, hCG Quali. NEGATIVE Negative
[2021-07-23 13:51] LABS: ALB/GLOB Ratio 1.1 RATIO (0.9-2.4); AST(SGOT) 19 U/L (15-37); Alanine Aminotransfer ALT/SGPT 27 U/L (13-56); Albumin, Serum 4.3 g/dL (3.2-5.0); Alkaline Phosphatase 95 U/L (45-117); Anion Gap 10 (5-15); BUN 26 mg/dL (7-18); BUN/Creat Ratio 14.2 RATIO (10-20); Calcium,Total 9.9 mg/dL (8.5-10.1); Chloride 97 mmol/L (98-107); Creatinine, Serum 1.83 mg/dL (0.55-1.02); EST Glomerular Filtration Rate 31 mL/min (>60); Est Glom Filt Rate - Afr Amer 38 mL/min (>60); Estimated Creatinine Clearance 30.76 ml/min; Globulin 3.8 g/dL (2.2-4.2); Glucose 114 mg/dL (74-106); Lipase 128 U/L (73-393); Potassium 3.4 mmol/L (3.5-5.1); Protein, Total 8.1 g/dL (6.4-8.2); Sodium Level 132 mmol/L (136-145)
--- NOTE | 2021-07-23 14:06 | EKG12_ITS ---
Test Reason : ABDOMINAL PAIN Blood Pressure : / mmHG Vent. Rate : 104 BPM Atrial Rate : 104 BPM P-R Int : 124 ms QRS Dur : 078 ms QT Int : 308 ms P-R-T Axes : 066 068 059 degrees QTc Int : 405 ms Sinus tachycardia with Premature atrial complexes Nonspecific T wave abnormality Abnormal ECG Confirmed by MARILIN MARINA, JASON ([id number]), medical transcription editor NOELLE SALDIVAR ([id number]) on 07/25/2021 9:17:42 AM Referred By: OREN Confirmed By:JASON GASTON MD
[2021-07-23 15:12] LABS: Bacteria 0 SEEN /hpf (None Seen); Mucous, Urine 0 SEEN /hpf (<or=2+); Red Blood Cells-Urine 0 SEEN /hpf (0-5); Squamous Epithelial Cells - UA 0 SEEN /hpf (5-10); White Blood Cells 0 SEEN /hpf (0-5)
[2021-07-23 15:16] LABS: Color, Urine Yellow (Yellow); Glucose, Dipstick Normal (Normal); Ketone-Dipstick Negative (Negative); Leukocyte Esterase-Dipstick Negative /ul (Negative); Nitrite-Dipstick Negative (Negative); Occult Blood-Urine Negative /ul (Negative); Protein-Dipstick Negative (Negative); Urine Bilirubin Dipstick Negative (Negative); Urine Clarity Clear (Clear); Urine Urobilinogen Normal (Normal)
[2021-07-23 16:00] VITALS: BP 132/63; PULSE 90; O2SAT 95
== END 2021-07-23 16:08 | disposition home or self-care (01) ==
PROVIDERS: Emergency Provider Emergency Medicine; PCP Family Medicine; Visit Provider Emergency Medicine
DX: N17.9 Acute kidney failure, unspecified (principal); I10 Essential (primary) hypertension; R14.0 Abdominal distension (gaseous); R11.10 Vomiting, unspecified; E86.0 Dehydration; Z87.891 Personal history of nicotine dependence; M54.9 Dorsalgia, unspecified; R10.9 Unspecified abdominal pain; D72.829 Elevated white blood cell count, unspecified
CPT/HCPCS: 74177; 80053; 81001; 83690; 84703; 85025; 93005; 99283; J7030; Q9967; J2405

== ENCOUNTER 2021-07-26 14:51 | Outpatient (CLI) | payer OTHER, SELFPAY ==
[2021-07-26 15:06] LABS: Bacteria 0 SEEN /hpf (None Seen); Mucous, Urine 0 SEEN /hpf (<or=2+); Red Blood Cells-Urine 0 SEEN /hpf (0-5); Squamous Epithelial Cells - UA 0 SEEN /hpf (5-10); White Blood Cells 0 SEEN /hpf (0-5)
[2021-07-26 17:47] LABS: Color, Urine Yellow (Yellow); Glucose, Dipstick Normal (Normal); Ketone-Dipstick Negative (Negative); Leukocyte Esterase-Dipstick Negative /ul (Negative); Nitrite-Dipstick Negative (Negative); Occult Blood-Urine Negative /ul (Negative); Protein-Dipstick Negative (Negative); Urine Bilirubin Dipstick Negative (Negative); Urine Clarity Clear (Clear); Urine Urobilinogen Normal (Normal)
[2021-07-26 17:53] LABS: Absolute Lymphocyte Count 2.12 X10^3/uL (0.83-4.51); Absolute Neutrophil Count 7.4 X10^3/uL (2.0-7.7); Basophil# 0.06 X10^3/uL; Basophil% 0.6 % (0-1); Eosinophil# 0.23 X10^3/uL; Eosinophils% 2.2 % (0-5); Hemoglobin 14.6 g/dL (12.0-15.0); Lymphocyte # 2.12 X10^3/ul (0.83-4.51); Lymphocyte % 19.9 % (19-41); Mean Corp Hgb Conc 32.4 g/dL (32-36); Mean Corpuscular Hgb 28.5 pg (27.0-32.0); Mean Corpuscular Volume 87.7 fL (81-99); Mean Platelet Vol. 9.6 fl (6.2-12.0); Monocyte# 0.78 X10^3/uL; Monocyte% 7.3 % (0-10); NRBC Flagged by Analyzer 0 % (0-5); Neutrophil % 69.3 % (47-70); Platelet Count 459 K/mm3 (150-450); RBC Distribution Width CV 16.2 % (11.6-14.6); RBC Distribution Width SD 51.6 fl (35.1-43.9); Red Blood Count 5.13 M/mm3 (4.2-5.4); White Blood Count 10.7 K/mm3 (4.4-11.0)
[2021-07-26 18:10] LABS: ALB/GLOB Ratio 1.1 RATIO (0.9-2.4); AST(SGOT) 16 U/L (15-37); Alanine Aminotransfer ALT/SGPT 30 U/L (13-56); Alkaline Phosphatase 87 U/L (45-117); Anion Gap 4 (5-15); BUN 10 mg/dL (7-18); Calcium,Total 9.4 mg/dL (8.5-10.1); Chloride 101 mmol/L (98-107); Creatinine, Serum 0.77 mg/dL (0.55-1.02); EST Glomerular Filtration Rate 84 mL/min (>60); Est Glom Filt Rate - Afr Amer 102 mL/min (>60); Globulin 3.7 g/dL (2.2-4.2); Glucose 90 mg/dL (74-106); Magnesium 2.1 mg/dL (1.6-2.6); Potassium 3.8 mmol/L (3.5-5.1); Protein, Total 7.7 g/dL (6.4-8.2); Sodium Level 134 mmol/L (136-145)
== END 2021-07-26 23:59 | disposition home or self-care (01) ==
LOC: MFPLAB 14:54
PROVIDERS: PCP Family Medicine; Referring Provider Family Medicine; Visit Provider Family Medicine
DX: S37.009A Unspecified injury of unspecified kidney, initial encounter (principal)
CPT/HCPCS: 36415; 80053; 81001; 83735; 85025

== ENCOUNTER 2023-02-28 11:29 | Emergency (ER) | payer MEDICAID, SELFPAY ==
[2023-02-28 11:29] VITALS: BP 182/97; PULSE 102; RESP 16; TEMP 36.2; O2SAT 100; BMI 43.4
--- NOTE | 2023-02-28 11:42 | RAD_ITS ---
EXAM: XR LUMBOSACRAL SPINE, 2 OR 3 VIEWS CLINICAL INDICATION: Fall injury with back pain. TECHNIQUE: Frontal and lateral views of the lumbar spine and sacrum. COMPARISON: No relevant prior studies available. FINDINGS: VERTEBRAE: Moderate recent compression fracture across the upper L1 on vertebral body. Partial sacralization of L5. No spondylolisthesis. Preservation of the normal lumbar lordosis. No significant facet arthropathy. DISC SPACES: Pronounced L5-S1 degenerative disc space height narrowing with degenerative vacuum phenomenon. GASTROINTESTINAL TRACT: Unremarkable as visualized. Included bowel gas pattern is non-obstructive.
--- NOTE | 2023-02-28 11:42 | RAD_ITS ---
EXAM: XR RIGHT WRIST COMPLETE, 3 OR MORE VIEWS CLINICAL INDICATION: Fall injury. TECHNIQUE: Frontal, lateral and oblique views of the right wrist. COMPARISON: 02/13/2016. FINDINGS: BONES/JOINTS: Unremarkable. No acute fracture. No subluxation. Normal alignment. Preservation of the joint space. No sclerotic or destructive changes observed. SOFT TISSUES: Clearing of tiny radiopaque metallic foreign body in the soft tissue overlying the first metacarpal. No soft tissue swelling or gas. RAD/Wrist min 3 Views IMPRESSION: 1. No acute fracture or dislocation of the right wrist. 2. Interval clearing of tiny metallic radiopaque foreign body overlying the metacarpal of the right thumb. Electronically Signed: Feliz King MD at 12:13 EDT ,
--- NOTE | 2023-02-28 11:44 | ED.VIS.FALL ---
HPI HPI - Fall History of Present Illness Chief Complaint: Fall Detail of Chief Complaint: Lost balance fell landing on her buttock. Informant: patient Occured/Mechanism Occurred: Today and Hours Mechanism/Context: Yes same level fall Usually ambulates: Without assistance Pain/Injury Pain Location: back and upper extremity Quality of Pain: Dull and Aching Current Severity: Mild Maximum Severity: Mild Associated Symptoms Associated Symptoms: Negative for Parasthesias, Weakness, Loss of function, Inability to ambulate, Loss of consciousness or Amnesia Narrative Narrative: 53-year-old female history of hypertension, anxiety, chronic back pain. Got up because she had a cramp in her calf. This stretch out her leg. States she lost her balance fell landing on her buttock. Complaining of pain in her right wrist where she tried to catch herself and right lower back. She has a history of chronic back pain but there is never had back surgery. She has had a prior carpal tunnel. Denies any head injury. No LOC. She is on no blood thinners. Prior similar symptoms: Yes Recent Illness/Hospitalization: No PFSH PFSH Medical History Anxiety and depression Asthma exacerbation in COPD Back pain Chronic back pain Essential hypertension GERD (gastroesophageal reflux disease) [place] (obstructive sleep apnea) Osteoarthritis Rheumatoid arthritis Ventral incisional hernia without obstruction or gangrene Home Medications buspirone 15 mg tablet 15 mg PO BID PRN Anxiety 04/18/19 [History Last Taken Unknown] hydroxyzine HCl 25 mg tablet 25 mg PO TID-QID PRN anxiety/hives 04/18/19 [History Last Taken Unknown] lactobacillus combination no.8 3 billion cell capsule (Adult Probiotic) 3,000 mmu cells PO DAILY 04/18/19 [History Last Taken Unknown] lansoprazole 30 mg capsule,delayed release (Prevacid) 30 mg PO DAILY gerd 04/18/19 [History Last Taken 10/31/19 06:00 30 MG] losartan 100 mg tablet 100 mg PO DAILY bp 04/18/19 [History Last Taken 10/31/19 06:00 100 MG] albuterol sulfate 2.5 mg/3 mL (0.083 %) solution for nebulization 2.5 mg inhalation Q4H PRN DYSPNEA, WHEEZING 07/11/19 [History Last Taken Unknown] amlodipine 10 mg tablet 10 mg PO DAILY bp 07/11/19 [History Last Taken 10/31/19 06:00 10 MG] carisoprodol 350 mg tablet 350 mg PO BID muscle relaxer 07/11/19 [History Last Taken Unknown] dextroamphetamine-amphetamine ER 20 mg 24hr capsule,extend release (Adderall XR) 30 mg PO DAILY 07/11/19 [History Last Taken Unknown] dicyclomine 20 mg tablet 20 mg PO 4X/DAY PRN stomach 07/11/19 [History Last Taken Unknown] hydrochlorothiazide 25 mg tablet 25 mg PO DAILY 07/11/19 [History Last Taken Unknown] nystatin 100,000 unit/mL oral suspension 1 ml PO TID PRN thrush from symbicort 07/11/19 [History Last Taken Unknown] prednisone 10 mg tablet 10 mg PO DAILY PRN arthritis 07/11/19 [History Last Taken Unknown] ipratropium 0.5 mg-albuterol 3 mg (2.5 mg base)/3 mL nebulization soln 3 ml inhalation Q6H PRN shortness of breath or wheezing #180 mL 08/05/19 [Rx Last Taken Unknown] tiotropium bromide 2.5 mcg/actuation mist for inhalation (Spiriva Respimat) 2 puff inhalation QDAY #1 ea 10/19/19 [Rx Last Taken Unknown] ergocalciferol (vitamin D2) 1,250 mcg (50,000 unit) capsule 50,000 unit PO Q7D 10/27/19 [History Last Taken Unknown] indomethacin 25 mg capsule 25 mg PO TID PRN PRN Pain Or Fever 10/27/19 [History Last Taken Unknown] cetirizine 10 mg capsule 10 mg PO HS allergies #30 caps 12/02/19 [Rx Last Taken Unknown] fluticasone propionate 50 mcg/actuation nasal spray,suspension 2 spray intranasal DAILY #16 grams 02/07/20 [Rx Last Taken Unknown] budesonide-formoterol HFA 160 mcg-4.5 mcg/actuation aerosol inhaler (Symbicort) 2 puff inhalation BID #10.2 grams 11/27/20 [Rx Last Taken Unknown] albuterol sulfate 90 mcg/actuation aerosol inhaler 2 puff inhalation Q4H PRN PRN shortness of breath or wheezing #18 grams 03/27/21 [Rx Last Taken Unknown] ondansetron 4 mg disintegrating tablet 4 mg PO Q8H PRN nausea and vomiting #10 tabs 07/23/21 [Rx Last Taken Unknown] hydrocodone 7.5 mg-acetaminophen 300 mg tablet 1 tab PO Q6H PRN pain 4 days #15 tabs 02/28/23 [Rx Last Taken Unknown] Allergy/AdvReac Type Severity Reaction Status Date / Time meloxicam [From Mobic] Allergy Intermediate nausea and Verified 02/28/23 11:31 vomiting Sulfa (Sulfonamide Allergy Hives Verified 02/28/23 11:31 Antibiotics) levofloxacin [From Levaquin] AdvReac Other Verified 02/28/23 11:31 Family History Mother Diabetes Heart disease Hypertension Kidney disease Surgical History History of carpal tunnel release of both wrists History of section History of colonoscopy (~2014) History of right hip replacement History of tonsillectomy Hx of fasciotomy Hx of ventral hernia repair Social History Smoking Status: Light Smoker (<10/day) Tobacco: How many years used: 28 how long ago did patient quit smokin years, 2015 second hand exposure: Yes alcohol intake: current alcohol intake frequency: a few times a month substance use type: does not use caffeine: Yes Type: carbonated beverages Number of servings: 1 and coffee Number of servings: 3 ROS ROS ED ROS Narrative Denies recent illness. Review of Systems ROS Unobtainable: Denies due to encephalopathy Constitutional Constitutional ED: Denies chills or fever(s) Eyes Eyes: Denies blurry vision ENT ENT ED: Denies ear pain Cardiovascular Cardiovascular: Denies palpitations Respiratory/Chest Respiratory/Chest: Denies dyspnea Gastrointestinal Gastrointestinal: Denies abdominal pain Genitourinary Genitourinary ED: Denies dysuria or hematuria Musculoskeletal Musculoskeletal: Reports back pain; Denies arthralgias, myalgias or neck pain Integumentary Denies abscess or Abrasions Neurologic Neurologic: Denies headache(s) Psychiatric Psychiatric: Denies anxiety Endocrine Endocrinology: Denies polydipsia or polyphagia Hematologic/Lymphatic Hematologic/Lymphatic: Denies easy bleeding or easy bruising Allergic/Immunologic Allergic/Immunologic ED: Denies mouth swelling, tongue swelling or urticaria EXAM Physical Exam Narrative Exam Narrative: 53-year-old female no acute distress. Sitting upright in bed. Vital signs stable. Afebrile. H EENT exam unremarkable atraumatic. Pupils round reactive light. Nontender. No hematoma. Neck and C-spine nontender. Back cervical thoracic spine nontender lower lumbar spine very mild tenderness. No ecchymosis or bruising. No signs of trauma. Pelvic girdle intact. Lungs clear to auscultation. Heart regular rhythm no murmur. Chest wall and ribs nontender. Abdomen soft nontender. Moving all 4 extremities. Minimal tenderness and swelling to the right wrist no gross bony deformity. Able to do flexion extension. Equal symmetrical general assistant strength. Dorsi plantarflexion intact. Neurologic exam normal. GCS of 15. Const Vital Signs: 02/28/23 11:29 02/28/23 11:29 Temperature 97.2 F L Temperature Source Temporal Pulse Rate 102 H Respiratory Rate 16 Respiratory Effort Normal Respiratory Depth Normal Respiratory Pattern Normal Blood Pressure 182/97 H Blood Pressure Mean 125 Pulse Ox 100 Oxygen Delivery Method Room Air Room Air Positive well nourished and well developed; Negative for cachectic, contractures or unkempt General Appearance ED: well developed and NAD; Negative for unkempt, cachectic or contractures Nutritional Appearance: Negative for cachectic HEENT Reports normocephalic atraumatic; Negative for trauma or contusion Eyes PERRL and EOMs intact bilaterally General Eye ED: Negative for pale conjunctiva or scleral icterus Neck full ROM, no lymphadenopathy and supple General: Negative for tenderness Chest Wall inspection of chest normal and palpation of chest normal Chest: Negative for other Resp normal respiratory effort, no retractions and clear to auscultation bilaterally Effort and Inspection: Negative for pain with movement Auscultation: Negative for rales, rhonchi or wheezes Cardio regular rate, regular rhythm, S1 normal heart sound, S2 normal heart sound and no murmurs Rate: Negative for bradycardia or tachycardic Rhythm: Negative for abnormal rhythm Bruits: Negative for other GI non-tender, non-distended and no masses Inspection: Negative for abdominal distention Auscultation: normoactive bowel sounds Palpation: soft; Negative for guarding Back/Spine no CVA tenderness General Back: Negative for CVA tenderness Cervical Spine: Negative for cervical spine tenderness Thoracic Spine / Upper Back: Negative for ROM limited Lumbar Spine / Lower Back: lumbar spinal tenderness Neuro oriented x3, CN's II-XII intact bilaterally and moves all extremities [place] Coma Scale: document GCS findings Spontaneous Obeys Commands Oriented 15 Sensorium / Orientation: alert, oriented to person, oriented to place and oriented to time; Negative for orientation impaired, confused or lethargic Motor Exam: strength 5/5 throughout Psych mental status grossly normal and thought process normal Appearance: Negative for unkempt Attitude: No agitated Mood & Affect: Negative for depressed, anxious or tearful Skin General Skin Exam: Negative for other Lesions: no lesions Rashes: no rashes Trauma: Negative for abrasion or laceration MDM MDM MDM Narrative Medical decision making narrative: 53-year-old fall with acute on chronic low back pain. Lumbar spine x-ray. She also injured her right wrist. Right wrist x-ray. She will be given 1 Vicodin for pain. Repeat exam at 12:45 PM. Patient is resting comfortably. Still has some pain. Remains neurovascularly intact. We discussed her x-ray results. She does not believe she is ever had a compression fracture. This may be new. She will be treated with Vicodin for pain at home. And outpatient follow-up with her primary care physician she has seen pain management in the past but does not have an active relationship with pain management. Radiography Diagnostic Testing: Clinical Impression(s) from Imaging Studies Lumbar Spine X-Ray 02/28/23 11:42 IMPRESSION: Moderate recent compression fracture across the upper L1 vertebral body. Electronically Signed: Feliz King MD at 12:21 EDT Reading Location ID and State: [facility] / [place] , Service support , Wrist X-Ray 02/28/23 11:42 IMPRESSION: 1. No acute fracture or dislocation of the right wrist. 2. Interval clearing of tiny metallic radiopaque foreign body overlying the metacarpal of the right thumb. Electronically Signed: Feliz King MD at 12:13 EDT , Right wrist x-ray, 3 views, interpreted by myself and radiologist as no acute abnormality. No fracture. No dislocation. Lumbar spine x-ray 2 view shows L1 compression fracture age-indeterminate. I looked at the CAT scan from several years ago and did not have it at that time. Discharge Plan Triage Chief Complaint: Fall ED Provider: Esequiel Neal Dx/Rx/DC Orders Clinical Impression: Closed compression fracture of L1 vertebra, Fall, Right wrist sprain Instructions: ED Fracture, Vertebral Compression Prescriptions: New hydrocodone-acetaminophen 7.5-300 mg tablet 1 tab PO Q6H PRN (Reason: pain) 4 Days Qty: 15 0RF No Action hydroxyzine HCl 25 mg tablet 25 mg PO TID-QID PRN (Reason: anxiety/hives) lansoprazole [Prevacid] 30 mg capsule,delayed release(DR/EC) 30 mg PO DAILY losartan 100 mg tablet 100 mg PO DAILY buspirone 15 mg tablet 15 mg PO BID PRN (Reason: Anxiety) Adult Probiotic 3 billion cell capsule 3,000 mmu cells PO DAILY hydrochlorothiazide 25 mg tablet 25 mg PO DAILY prednisone 10 mg tablet 10 mg PO DAILY PRN (Reason: arthritis) amlodipine 10 mg tablet 10 mg PO DAILY dicyclomine 20 mg tablet 20 mg PO 4X/DAY PRN (Reason: stomach) Patient Comments: TAKE 1 TABLET BY MOUTH FOUR TIMES A DAY NEEDED nystatin 100,000 unit/mL suspension 1 ml PO TID PRN (Reason: thrush from symbicort) Rx Instructions: swish and swallow dextroamphetamine-amphetamine [Adderall XR] 20 mg capsule,extended release 24hr 30 mg PO DAILY albuterol sulfate 2.5 mg /3 mL (0.083 %) solution for nebulization 2.5 mg inhalation Q4H PRN (Reason: DYSPNEA, WHEEZING) Patient Comments: breathing Spiriva Respimat 2.5 mcg/actuation mist 2 puff INHALATION QDAY Qty: 1 11RF Rx Instructions: administer at approximately the same time(s) each day budesonide-formoterol [Symbicort] 160-4.5 mcg/actuation HFA aerosol inhaler 2 puff inhalation BID Qty: 10.2 6RF carisoprodol 350 mg tablet 350 mg PO BID Patient Comments: back pain ergocalciferol (vitamin D2) 50,000 UNIT capsule 50,000 unit PO Q7D indomethacin 25 MG capsule 25 mg PO TID PRN PRN (Reason: Pain Or Fever) ondansetron 4 mg tablet,disintegrating 4 mg PO Q8H PRN (Reason: nausea and vomiting) Qty: 10 0RF ipratropium-albuterol 0.5 mg-3 mg(2.5 mg base)/3 mL solution for nebulization 3 ml INHALATION Q6H PRN (Reason: shortness of breath or wheezing) Qty: 180 6RF cetirizine 10 mg capsule 10 mg PO HS Qty: 30 6RF fluticasone propionate 50 mcg/actuation spray,suspension 2 spray INTRANASAL DAILY Qty: 16 3RF albuterol sulfate 90 mcg/actuation HFA aerosol inhaler 2 puff inhalation Q4H PRN PRN (Reason: shortness of breath or wheezing) Qty: 18 11RF Primary Care Provider: Aline Palafox Referrals: Luis A Stevens MD [Med Staff - [employer]] - Aline Palafox, [Primary Care Provider] - As soon as possible Activity Restrictions/Additional Instructions: Your wrist x-ray was normal. Sprain rest. Ice and elevate. Your back x-ray looks like an L1 compression fracture. Not seen on prior studies from years ago. This may be acute. Vicodin for pain. Plenty of fluids and fiber to prevent constipation. Stool softener as needed. Call and follow-up with primary care physician because if the pain is not improving they may need you to see pain management or have other evaluations done. Disposition Disposition: Home, Self Care
[2023-02-28] MEDS: HYDROcodone Bitartrate/Apap 5/325 Tablet PO ×2 (11:50→13:01)
[2023-02-28 12:58] VITALS: BP 138/76; PULSE 76; RESP 14; TEMP 36.4; O2SAT 99
== END 2023-02-28 13:03 | disposition home or self-care (01) ==
PROVIDERS: Emergency Provider Emergency Medicine; PCP Family Medicine; Visit Provider Emergency Medicine
DX: M48.56XA Collapsed vertebra, not elsewhere classified, lumbar region, initial encounter for fracture (principal); I10 Essential (primary) hypertension; W18.30XA Fall on same level, unspecified, initial encounter; S63.91XA Sprain of unspecified part of right wrist and hand, initial encounter; F41.9 Anxiety disorder, unspecified; Z87.891 Personal history of nicotine dependence; G47.33 Obstructive sleep apnea (adult) (pediatric); K21.9 Gastro-esophageal reflux disease without esophagitis; G89.29 Other chronic pain; M54.9 Dorsalgia, unspecified
CPT/HCPCS: 72100; 73110; 99282

== ENCOUNTER → 2023-03-19 | Outpatient (CLI) | payer MEDICAID, SELFPAY ==
[2023-03-19 13:46] LABS: Amphetamine Urine VISTA POSITIVE (<1000 ng/mL); Barbiturate Urine VISTA NEGATIVE (< 200 ng/mL); Benzodiazepine Urine VISTA NEGATIVE (< 200 ng/mL); Cocaine Urine VISTA NEGATIVE (< 300 ng/mL); Ecstacy Urine VISTA NEGATIVE (< 500 ng/mL); Methadone Urine VISTA NEGATIVE (< 300 ng/mL); PCP Urine VISTA NEGATIVE (< 25 ng/mL); THC Urine VISTA NEGATIVE (< 50 ng/mL); Vista UDS pH Range 5
== END | disposition home or self-care (01) ==
LOC: LAB 12:30
PROVIDERS: PCP Family Medicine; Referring Provider Anesthesiology; Visit Provider Anesthesiology
DX: F11.90 Opioid use, unspecified, uncomplicated (principal)
CPT/HCPCS: 80307

== ENCOUNTER → 2023-04-18 | Outpatient (CLI) | payer MEDICAID, SELFPAY ==
--- NOTE | 2023-04-18 08:11 | MRI_ITS ---
STUDY: MRI LUMBAR SPINE WITHOUT CONTRAST REASON FOR EXAM: Female, 53 years old. OSTEOPOROSIS WITH CURRENT PATHOLOGICAL FX TECHNIQUE: Standardized fat and water weighted pulse sequences were obtained in the sagittal and axial planes. COMPARISON: X-ray the lumbar spine dated February 28, 2023. CT of abdomen and pelvis dated July 21, 2021 FINDINGS: Normal lumbar lordosis. There is no substantial scoliosis. Normal conus medullaris that terminates at the T12-L1 level. Redemonstration of a late subacute compression fracture of the L1 vertebral body with 50% loss of height and slight retropulsion. Diffuse reactive edema persists in the L1 vertebral body. No additional loss of height or new fractures are present. Secondary osteophyte formation is formed at the anterior aspect of the L1 vertebral body compression fracture site since the February exam. No lytic or blastic lesions are present. T12-L1: Normal endplates. Normal disc height, hydration and morphology. Normal bilateral facet joints. Normal central canal and bilateral lateral recesses. Normal bilateral intervertebral neural foramina. L1-2: Minimal posterior disc space narrowing without bulging or herniation of the disc. Normal bilateral facet joints. Normal central canal and bilateral lateral recesses. Normal bilateral intervertebral neural foramina. L2-3: Normal endplates. Diffuse disc desiccation. Normal disc height and morphology. Normal bilateral facet joints. Normal central canal and bilateral lateral recesses. Normal bilateral intervertebral neural foramina. L3-4: Mild to moderate facet joint and ligament of flavum hypertrophy contributing to mild central canal stenosis. Diffuse disc desiccation with preserved disc space height. No posterior disc herniation or bulging is present. Normal bilateral intervertebral neural foramina. L4-5: Normal endplates. Diffuse disc desiccation with mild posterior disc space narrowing and annular bulging. Small posterior annular tear of the disc. Mild to moderate ligamenta flava hypertrophy and facet joint hypertrophy contributing to mild central canal stenosis. Mild bilateral foraminal stenosis. L5-S1: Moderate disc space narrowing and Modic endplate degenerative signal. Diffuse disc bulge/spur complex. Mild facet joint hypertrophy. Normal central canal and bilateral lateral recesses. Normal bilateral intervertebral neural foramina. Normal visualized sacral ala. Normal visualized paraspinous soft tissue structures. MRI/Spine Lumbar (Routine) IMPRESSION: 1. Redemonstration of a late subacute compression fracture of the L1 vertebral body with 50% loss of height and slight retropulsion. Diffuse reactive edema persists in the L1 vertebral body. No additional loss of height or new fractures are present. Secondary osteophyte formation is formed at the anterior aspect of the L1 vertebral body compression fracture site since the February exam. No lytic or blastic lesions are present. 2. Multilevel degenerative changes, as described above. Electronically Signed: Raffi Luna MD at 11:06 EST ,
== END | disposition home or self-care (01) ==
LOC: MRI 07:56
PROVIDERS: PCP Family Medicine; Referring Provider Anesthesiology; Visit Provider Anesthesiology
DX: M80.08XA Age-related osteoporosis with current pathological fracture, vertebra(e), initial encounter for fracture (principal)
CPT/HCPCS: 72148

== ENCOUNTER → 2023-06-03 | Outpatient (CLI) | payer MEDICAID, SELFPAY ==
--- NOTE | 2023-06-03 09:07 | BD_ITS ---
STUDY: DUAL ENERGY X-RAY ABSORPTIOMETRY / DXA REASON FOR EXAM: Female, 53 years old. [id number] TECHNIQUE: Bone Mineral Density (BMD) measurements of lumbar spine and left hip were obtained. COMPARISON: None. FINDINGS: Lumbar Spine (L1-L4): g/cm2 (1.082) / T-score (0.0) / Z-score (0.9) Findings are suggestive of normal bone density with a low fracture risk. Left Femur Total: g/cm2 (0.902) / T-score (-0.3) / Z-score (0.2) Left Femoral Neck: g/cm2 (0.667) / T-score (-1.6) / Z-score (-0.8) BD/Dexa Bone Density Study IMPRESSION: The patient is considered osteopenic as outlined below according to World Alfred Organization (WHO) criteria with a moderate fracture risk. Reference Information: The T-score is the number of standard deviations above or below the standard which is normal for young adults at their peak bone mineral density. The World Health Organization (WHO) interprets the T-scores as follows: Above -1 Normal bone density Between -1 and -2.5 Osteopenia Equal to / or below -2.5 Osteoporosis As a practical clinical guideline, osteopenia may be graded as follows: Mild -1 through -1.5 Moderate -1.6 through -2.0 Severe -2.1 through -2.4 The Z-score is the number of standard deviations above or below age-matched controls. A Z-score of less than -1.5 would be considered abnormal. References: 1. NIH Osteoporosis and Related Bone Diseases www osteo.org 2. International Society for Clinical Densitometry www iscd.org 3. National Osteoporosis Foundation www nof.org Electronically Signed: Darnell Infante MD at 10:16 EST ,
--- OUTSIDE RECORDS SUMMARY | 2023-06-03 09:35 | XMS RPT_ITS | CCD ---
Author Name Unknown Address [address] [place] [address] Organization [facility] Results Test Name Value Interpretation Reference Range Facil ity Summary Purpose Family History No Family History Records Found Advance Directives No Advanced Directives Records Found Additional Source Comments INFORMATION SOURCE (unrecogn ized section and content) FOR RECORDS PERTAINING TO PATIENTS WHO ARE OR HAVE BEEN ENROLLED IN A CHEMICAL DEPENDENCY/SUBSTANCEABUSE PROGRAM, SOME INFORMATION MAY BE OMITTED. This clinical summary was aggregated from multiple sources. Caution should be exercised in using it in the provision of clinical care. This summary normalizes information from multiple sources, and as a consequence, information in this document may materially change the coding, format and clinical context of patient data. In addition, data may be omitted in some cases. CLINICAL DECISIONS SHOULD BE BASED ON THE PRIMARY CLINICAL RECORDS. [employer] provides no warranty or guarantee of the accuracy or completeness of information in this document.
== END | disposition home or self-care (01) ==
LOC: OPBD 09:07
PROVIDERS: PCP Family Medicine; Referring Provider Family Medicine; Visit Provider Family Medicine
DX: Z78.0 Asymptomatic menopausal state (principal); Z13.820 Encounter for screening for osteoporosis
CPT/HCPCS: 77080

== ENCOUNTER → 2023-06-18 | Outpatient (CLI) | payer MEDICAID, SELFPAY ==
[2023-06-18 12:27] LABS: Absolute Lymphocyte Count 1.76 X10^3/uL (0.83-4.51); Absolute Neutrophil Count 7.6 X10^3/uL (2.0-7.7); Basophil# 0.06 X10^3/uL; Basophil% 0.6 % (0-1); Eosinophil# 0.09 X10^3/uL; Eosinophils% 0.9 % (0-5); Hematocrit 44.2 % (37-47); Hemoglobin 14.3 g/dL (12.0-15.0); Lymphocyte # 1.76 X10^3/ul (0.83-4.51); Mean Corp Hgb Conc 32.4 g/dL (32-36); Mean Corpuscular Hgb 27.6 pg (27.0-32.0); Mean Corpuscular Volume 85.2 fL (81-99); Mean Platelet Vol. 9.5 fl (6.2-12.0); Monocyte# 0.82 X10^3/uL; Monocyte% 7.9 % (0-10); NRBC Flagged by Analyzer 0 % (0-5); Neutrophil # 7.55 X10^3/uL (2.7-7.7); Neutrophil % 73.1 % (47-70); Platelet Count 435 K/mm3 (150-450); RBC Distribution Width CV 15.9 % (11.6-14.6); RBC Distribution Width SD 49.6 fl (35.1-43.9); Red Blood Count 5.19 M/mm3 (4.2-5.4); White Blood Count 10.3 K/mm3 (4.4-11.0)
[2023-06-18 12:38] LABS: Vitamin B12 396 pg/mL (211-911); Vitamin D,25 Hydroxy 12.2 ng/mL
[2023-06-18 13:09] LABS: AST(SGOT) 18 U/L (15-37); Alanine Aminotransfer ALT/SGPT 29 U/L (13-56); Albumin, Serum 3.8 g/dL (3.2-5.0); Alkaline Phosphatase 95 U/L (45-117); Anion Gap 5 (5-15); BUN 15 mg/dL (7-18); BUN/Creat Ratio 17.8 RATIO (10-20); Calcium,Total 9.3 mg/dL (8.5-10.1); Chloride 103 mmol/L (98-107); Cholesterol 206 mg/dL (200); Creatinine, Serum 0.84 mg/dL (0.55-1.02); EST Glomerular Filtration Rate 76 mL/min (>60); Est Glom Filt Rate - Afr Amer 92 mL/min (>60); Ferritin 27 ng/mL (8-252); Globulin 3.9 g/dL (2.2-4.2); Glucose 95 mg/dL (74-106); High Density Lipoprotein 71 mg/dL; Magnesium 2.4 mg/dL (1.6-2.6); Potassium 4.1 mmol/L (3.5-5.1); Protein, Total 7.7 g/dL (6.4-8.2); Sodium Level 136 mmol/L (136-145); T4 Free Direct 0.89 ng/dL (0.76-1.46); Triglycerides 121 mg/dL; Very Low Density Lipoprotein 24 mg/dL (5-40)
[2023-06-19 10:06] LABS: Hemoglobin A1c 5.6 % (3.8-5.6)
== END | disposition home or self-care (01) ==
LOC: MFPLAB 09:48
PROVIDERS: PCP Family Medicine; Visit Provider Family Medicine
DX: R53.83 Other fatigue (principal); R23.2 Flushing
CPT/HCPCS: 36415; 80053; 80061; 82306; 82533; 82607; 82728; 83036; 83735; 84439; 84443; 85025

== ENCOUNTER → 2023-10-23 | Outpatient (CLI) | payer MEDICAID, SELFPAY ==
[2023-10-23 15:44] LABS: Absolute Lymphocyte Count 1.37 X10^3/uL (0.83-4.51); Absolute Neutrophil Count 3.6 X10^3/uL (2.0-7.7); Basophil# 0.05 X10^3/uL; Basophil% 0.9 % (0-1); Eosinophil# 0.17 X10^3/uL; Eosinophils% 2.9 % (0-5); Hematocrit 40.9 % (37-47); Hemoglobin 13.5 g/dL (12.0-15.0); Lymphocyte # 1.37 X10^3/ul (0.83-4.51); Lymphocyte % 23.7 % (19-41); Mean Corpuscular Hgb 28.1 pg (27.0-32.0); Mean Platelet Vol. 9.6 fl (6.2-12.0); Monocyte# 0.55 X10^3/uL; Monocyte% 9.5 % (0-10); NRBC Flagged by Analyzer 0 % (0-5); Neutrophil # 3.64 X10^3/uL (2.7-7.7); Neutrophil % 62.8 % (47-70); Platelet Count 394 K/mm3 (150-450); RBC Distribution Width CV 14.6 % (11.6-14.6); RBC Distribution Width SD 45.7 fl (35.1-43.9); Red Blood Count 4.81 M/mm3 (4.2-5.4); White Blood Count 5.8 K/mm3 (4.4-11.0)
[2023-10-23 16:11] LABS: Vitamin D,25 Hydroxy 33.8 ng/mL
[2023-10-23 20:28] LABS: Hemoglobin A1c 5.5 % (3.8-5.6)
[2023-10-27 03:16] LABS: ALB/GLOB Ratio 1.1 RATIO (0.9-2.4); AST(SGOT) 21 U/L (15-37); Alanine Aminotransfer ALT/SGPT 24 U/L (13-56); Alkaline Phosphatase 68 U/L (45-117); Anion Gap 10 (5-15); BUN 11 mg/dL (7-18); BUN/Creat Ratio 16.6 RATIO (10-20); Calcium,Total 9.9 mg/dL (8.5-10.1); Chloride 100 mmol/L (98-107); Cholesterol 170 mg/dL (200); Creatinine, Serum 0.66 mg/dL (0.55-1.02); EST Glomerular Filtration Rate 99 mL/min (>60); Est Glom Filt Rate - Afr Amer 120 mL/min (>60); Follicle Stimulating Hormone 65.8 mIU/mL; Globulin 3.5 g/dL (2.2-4.2); Glucose 117 mg/dL (74-106); High Density Lipoprotein 55 mg/dL; Luteinizing Hormone 18.1 mIU/mL; Potassium 3.8 mmol/L (3.5-5.1); Protein, Total 7.5 g/dL (6.4-8.2); Sodium Level 134 mmol/L (136-145); Triglycerides 62 mg/dL; Very Low Density Lipoprotein 12 mg/dL (5-40)
[2023-10-29 08:14] LABS: Estrogen, Total, Serum 53 pg/mL (.)
== END | disposition home or self-care (01) ==
LOC: MTLAB 12:44
PROVIDERS: PCP Family Medicine; Referring Provider Family Medicine; Visit Provider Family Medicine
DX: I10 Essential (primary) hypertension (principal); R42 Dizziness and giddiness; R23.2 Flushing; Z79.52 Long term (current) use of systemic steroids
CPT/HCPCS: 36415; 80053; 80061; 82306; 82672; 83001; 83002; 83036; 84443; 85025

== ENCOUNTER → 2023-11-05 | Outpatient (CLI) | payer MEDICAID, SELFPAY ==
[2023-11-05 10:43] LABS: Hemoglobin A1c 5.4 % (3.8-5.6)
== END | disposition home or self-care (01) ==
LOC: MFPLAB 09:29
PROVIDERS: PCP Family Medicine; Visit Provider Family Medicine
DX: R73.01 Impaired fasting glucose (principal)
CPT/HCPCS: 36415; 83036

== ENCOUNTER → 2024-03-04 | Outpatient (CLI) | payer MEDICAID, SELFPAY ==
[2024-03-04 12:31] LABS: Erythrocyte Sedimentation Rate 13 mm/hr (0-30)
[2024-03-09 14:09] LABS: ANTINUCLEAR ANTIBODIES DIRECT Positive (Negative); Anti-Histone Abs 0.3 Units (0.0-0.9)
== END | disposition home or self-care (01) ==
LOC: MFPLAB 11:07
PROVIDERS: PCP Family Medicine; Referring Provider Family Medicine; Visit Provider Family Medicine
DX: L65.9 Nonscarring hair loss, unspecified (principal)
CPT/HCPCS: 36415; 85652; 86038; 86235

== ENCOUNTER → 2024-03-14 | Outpatient (CLI) | payer MEDICAID, SELFPAY ==
[2024-03-14 11:14] LABS: Rheumatoid Factor < 10.0 IU/mL (<15)
[2024-03-15 12:10] LABS: SJOGREN'S Anti-SS-A test > 8.0 AI (0.0-0.9); SJOGREN'S Anti-SS-B test < 0.2 AI (0.0-0.9)
[2024-03-16 17:07] LABS: Dilute Prothrombin Time (dPT) 39.2 sec (0.0-47.6); Dilute Russell Viper Venom 41.7 sec (0.0-47.0); Interpretation Comment: (.); PTT-LA 31.9 sec (0.0-43.5); Thrombin Time 22.3 sec (0.0-23.0); Thyroid Stim Immunoglob <0.10 IU/L (0.00-0.55); dPT Confirm Ratio 1.31 Ratio (0.00-1.34)
== END | disposition home or self-care (01) ==
LOC: MFPLAB 08:54
PROVIDERS: PCP Family Medicine; Visit Provider Family Medicine
DX: R76.8 Other specified abnormal immunological findings in serum (principal)
CPT/HCPCS: 36415; 84445; 86140; 86235; 86431

== ENCOUNTER 2024-08-06 11:14 | Observation (INO) | payer MEDICAID, SELFPAY ==
[2024-08-06] VITALS (9 sets, daily range): BP systolic 134–157; BP diastolic 62–79; PULSE 72–90; RESP 16–20; TEMP 36.4–37.3; O2SAT 92–100; BMI 39.4; BMI 41.3
--- NOTE | 2024-08-06 11:39 | EDS_ITS ---
HPI <Dr. Esequiel Neal MD - Last Filed: 08/06/24 16:20> History of Present Illness Chief Complaint: General Illness <Precious Conrad RN - Last Filed: 08/06/24 13:35> History of Present Illness Detail of Chief Complaint: Nausea and dizziness Informant: patient Onset/Context/Timing Onset: Days (3) Timing: Continuous Current Severity: Moderate Maximum Severity: Severe Worsened by: Activity Relieved by: Rest Narrative Narrative: Patient is a 54-year-old female with past medical history significant for asthma, Sojourn syndrome, CHEYENNE, chronic back pain, hypertension and rheumatoid arthritis who presents to the ED with complaints of nausea and dizziness. Patient reports on the evening of 08/03/2024 she began vomiting and vomited throughout the night. reports the following day in the morning she was slow to respond and slept most of the day. Patient reports vomiting has resolved but continues to be nauseous and is dizzy. reports she cannot walk a straight line. Patient is concerned she is dehydrated as she normally drinks 2 to 2-1/2 gallons of water a day and has not been able to do that since being ill. Beginning yesterday, she has been able to take p.o. and tolerated. She said she is had some Gatorade, pickle juice, and pickles in an attempt to increase her electrolytes. She denies dysuria, hematuria, and urinary frequency. She does state that she has decreased urine output that she attributes to decreased intake of water. She denies any exposure to illnesses. She denies pain and fever. Denies any recent URI symptoms. Denies chest pain. Does have chronic shortness of breath due to asthma which has not changed. Denies abdominal pain and diarrhea. Prior similar symptoms: No Recent Illness/Hospitalization: No PFSH <Dr. Esequiel Neal MD - Last Filed: 08/06/24 16:20> [facility] Medical History (Updated 08/06/24 @ 15:41 by Miladys Suarez) Anxiety Depression Smoker BiPAP (biphasic positive airway pressure) dependence Sleep apnea COPD (chronic obstructive pulmonary disease) Asthma Hypertension Migraines Sjogren syndrome Essential hypertension CHEYENNE (obstructive sleep apnea) Ventral incisional hernia without obstruction or gangrene Anxiety and depression Osteoarthritis Rheumatoid arthritis Back pain GERD (gastroesophageal reflux disease) Chronic back pain Asthma exacerbation in COPD Home Medications ?Medication ?Instructions ?Recorded ?Last Taken ?Type lactobacillus combination no.8 3 3,000 mmu cells PO DA WILBERT 04/18/19 08/05/24 History billion cell capsule (Adult Probiotic) lansoprazole 30 mg capsule,delayed 30 mg PO DAILY gerd 04/18/19 08/05/24 History release (Prevacid) losartan 100 mg tablet 100 mg PO DAILY bp 04/18/19 08/05/24 History albuterol sulfate 2.5 mg/3 mL 2.5 mg inhalation Q4H UT N DYSPNEA, 07/11/19 Unknown History (0.083 %) solution for nebulization WHEEZING amlodipine 10 mg tablet 10 mg PO DAILY bp 07/11/19 0 08/05/24 History carisoprodol 350 mg tablet 350 mg PO BID muscle relaxe r 07/11/19 08/05/24 History hydrochlorothiazide 25 mg tablet 25 mg PO DAILY 08/05/24 History prednisone 10 mg tablet 10 mg PO DAILY PRN arthritis 07/11/19 08/05/24 History ipratropium 0.5 mg-albuterol 3 mg 3 ml inhalation Q6H PRN shortness 08/05/19 Unknown Rx (2.5 mg base)/3 mL nebulization of breath or wheezing #180 mL soln ergocalciferol (vitamin D2) 1,250 50,000 unit PO Q7D 0 10/27/19 08/03/24 History mcg (50,000 unit) capsule albuterol sulfate 90 mcg/actuation 2 puff inhalation Q 4H PRN PRN 03/27/21 08/05/24 Rx aerosol inhaler shortness of breath or wheez ing #18 grams dextroamphetamine-amphetamine 20 1 tab PO BID 08/06/24 08/05/24 History mg tablet fluoxetine 20 mg tablet 20 mg PO DAILY 08/06/2407/10 History Allergy/AdvReac Type Severity Reaction Status Date / Time meloxicam (From Mobic) Allergy Intermediate nausea and Verified 08/06/24 11:16 vomiting Sulfa (Sulfonamide Allergy Hives Verified 08/06/24 11:16 Antibiotics) levofloxacin (From Levaquin) AdvReac Other Verified 08/06/24 11:16 Family History Mother Diabetes Heart disease Hypertension Kidney disease Surgical History Hx of ventral hernia repair Hx of fasciotomy History of colonoscopy (~2014) History of carpal tunnel release of both wrists History of right hip replacement History of tonsillectomy History of section Social History Smoking Status: Light Smoker (<10/day) Tobacco: How many years used: 28 how long ago did patient quit smokin years, 2015 second hand exposure: Yes alcohol intake: current alcohol intake frequency: a few times a month substance use type: does not use caffeine: Yes Type: carbonated beverages Number of servings: 1 and coffee Number of servings: 3 ROS <Precious Conrad RN - Last Filed: 08/06/24 13:35> ROS ED ROS Narrative Denies fever, chills. Reports dizziness. Denies recent weight loss. Constitutional Constitutional ED: Denies chills, fever(s), sweats or weight loss Eyes Eyes: Denies blurry vision or change in vision ENT ENT ED: Denies ear pain, rhinorrhea or sore throat Cardiovascular Cardiovascular: Denies chest pain, orthopnea, palpitations or racing heartbeat Respiratory/Chest Respiratory/Chest: Reports cough, dyspnea and dyspnea on exertion; Denies orthopnea Gastrointestinal Gastrointestinal: Reports nausea; Denies abdominal pain, constipation, diarrhea, melena or vomiting Genitourinary Genitourinary ED: Denies dysuria, hematuria or urinary frequency Musculoskeletal Musculoskeletal: Denies arthralgias, back pain, myalgias or neck pain Integumentary Denies rash Neurologic Neurologic: Denies headache(s), paresthesias or weakness Psychiatric Psychiatric: Denies anxiety or depression EXAM <Dr. Esequiel Neal MD - Last Filed: 08/06/24 16:20> Physical Exam Const Vital Signs: 08/06/24 11:16 08/06/24 11:46 08/06/24 13:14 Temperature 97.6 F L Temperature Source Oral Pulse Rate 87 72 Respiratory Rate 18 18 Respiratory Effort Normal Respiratory Pattern Normal Blood Pressure 143/78 H 147/79 H Blood Pressure Mean 99 101 Pulse Ox 95 100 Oxygen Delivery Method Room Air 08/06/24 13:31 Temperature 98 F Temperature Source Pulse Rate 72 Respiratory Rate 18 Respiratory Effort Respiratory Pattern Blood Pressure 147/79 H Blood Pressure Mean 101 Pulse Ox 100 Oxygen Delivery Method <Precious Conrad RN - Last Filed: 08/06/24 13:35> Physical Exam Narrative Exam Narrative: Patient laying on ED cot, awake and alert. No acute distress. Pleasant and cooperative. Const Vital Signs: 08/06/24 11:16 08/06/24 11:46 08/06/24 13:14 Temperature 97.6 F L Temperature Source Oral Pulse Rate 87 72 Respiratory Rate 18 18 Respiratory Effort Normal Respiratory Pattern Normal Blood Pressure 143/78 H 147/79 H Blood Pressure Mean 99 101 Pulse Ox 95 100 Oxygen Delivery Method Room Air 08/06/24 13:31 Temperature 98 F Temperature Source Pulse Rate 72 Respiratory Rate 18 Respiratory Effort Respiratory Pattern Blood Pressure 147/79 H Blood Pressure Mean 101 Pulse Ox 100 Oxygen Delivery Method Positive well nourished and well developed General Appearance ED: well developed and NAD HEENT Reports moist mucous membranes Eyes PERRL and EOMs intact bilaterally Neck no lymphadenopathy, supple and no JVD Chest Wall inspection of chest normal and palpation of chest normal Resp normal respiratory effort Auscultation: wheezes expiratory wheezes (Expiratory wheezes throughout); Negative for rales or rhonchi Cardio regular rate, regular rhythm, S1 normal heart sound and S2 normal heart sound GI normal to inspection, nondistended, normoactive bowel sounds and non-tender Palpation: soft Back/Spine no CVA tenderness Extremity normal to inspection General Extremety ED: Negative for edema or tenderness General Extremity: Negative for edema Neuro oriented x3, CN's II-XII intact bilaterally and no sensory deficits noted Sensorium / Orientation: alert Motor Exam: strength 5/5 throughout Psych mental status grossly normal Skin no rashes or lesions noted, no wounds and skin turgor normal MDM <Dr. Esequiel Neal MD - Last Filed: 08/06/24 16:20> [facility] MDM Narrative Medical decision making narrative: I have personally performed a face to face assessment of the patient and have reviewed the CORDELIA Note. I performed a substantive portion of the visit including all aspects of the following. My hernandez findings include: History is 54-year-old female send on Thursday she had nausea and vomiting. No diarrhea or fever. Nausea vomiting is resolved. Patient typically drinks 2+ gallons of water per day. In the past she has had a low sodium from that. She is concerned that she may be dehydrated. Exam is [well-appearing 54-year-old female. Vital signs stable afebrile. H EENT exam pupils round reactive light. Moist mucous membranes. Neck nontender no JVD. Lungs few scattered expiratory wheezes history of asthma. No respiratory distress. Heart regular rhythm rate about 85 no murmur. Chest wall ribs nontender. Abdomen soft nontender. Moving all 4 extremities. Normal strength. Normal range of motion. Nontender no edema. 5 out of 5 operations support specialist strength. Dorsi plantarflexion intact. Back nontender. Neurologically she is awake alert no focal motor deficits. NIH is 0.] Medical Decision Making [54-year-old female nausea vomiting. Screening labs will be obtained. She might have low sodium due to the amount of water she takes in daily. Otherwise her exam is benign other than her chronic asthma.] Other additions or changes: [None] History & Record Review Discussion w/independent historian: Patient and Family Lab Data Attestation: I reviewed the patient's lab results. Labs: Laboratory Results - last 24 hr 08/06/24 08/06/24 11:55 12:01 WBC 12.5 H RBC 4.88 Hgb 13.8 Hct 38.0 MCV 77.9 L MCH 28.3 MCHC 36.3 H RDW Std Deviation 36.5 RDW Coeff of Kofi 13.0 Plt Count 408 MPV 8.0 Immature Gran % (Auto) 1.000 H Neut % (Auto) 71.1 H Lymph % (Auto) 15.6 L [place] % (Auto) 11.8 H Eos % (Auto) 0.2 Baso % (Auto) 0.3 Absolute Neuts (auto) 8.9 H Absolute Lymphs (auto) 1.94 Nucleated RBC % 0 Sodium 119 L* Potassium 3.1 L Chloride 79 L Carbon Dioxide 27.6 Anion Gap 13 BUN 15 Creatinine 0.63 L Estim Creat Clear Calc 118.57 Est GFR (MDRD) Non-Af 107 BUN/Creatinine Ratio 23.3 H Glucose 151 H Calcium 9.3 Total Bilirubin 0.58 AST 30 ALT 21 Alkaline Phosphatase 82 Total Protein 6.6 Albumin 4.0 Globulin 2.6 Albumin/Globulin Ratio 1.5 Urine Color Yellow Urine Clarity Clear Urine pH 7.0 Ur Specific [place] 1.010 Urine Protein 30 H Urine Glucose (UA) Normal Urine Ketones Negative Urine Occult Blood 10 H Urine Nitrite Negative Urine Bilirubin Negative Urine Urobilinogen 4 H Ur Leukocyte Esterase Negative Urine RBC 0 SEEN Urine WBC 0 SEEN Ur Squamous Epith Cells 0-5 SEEN Urine Bacteria 0 SEEN Urine Mucus 0 SEEN <Precious Conrad RN - Last Filed: 08/06/24 13:35> MDM MDM Narrative Medical decision making narrative: IV initiated. CBC drawn to evaluate for infection. BMP drawn to evaluate for electrolyte imbalances. Urine will be obtained to evaluate for UTI/hematuria. The patient will be given 1 L normal saline due to recent vomiting and nausea. She will be given 4 mg ondansetron due to nausea. I have personally performed a face to face assessment of the patient and have reviewed the CORDELIA Note. I performed a substantive portion of the visit including all aspects of the following. My hernandez findings include: History is 54-year-old female send on Thursday she had nausea and vomiting. No diarrhea or fever. Nausea vomiting is resolved. Patient typically drinks 2+ gallons of water per day. In the past she has had a low sodium from that. She is concerned that she may be dehydrated. Exam is [well-appearing 54-year-old female. Vital signs stable afebrile. H EENT exam pupils round reactive light. Moist mucous membranes. Neck nontender no JVD. Lungs few scattered expiratory wheezes history of asthma. No respiratory distress. Heart regular rhythm rate about 85 no murmur. Chest wall ribs nontender. Abdomen soft nontender. Moving all 4 extremities. Normal strength. Normal range of motion. Nontender no edema. 5 out of 5 operations support specialist strength. Dorsi plantarflexion intact. Back nontender. Neurologically she is awake alert no focal motor deficits. NIH is 0.] Medical Decision Making [54-year-old female nausea vomiting. Screening labs will be obtained. She might have low sodium due to the amount of water she takes in daily. Otherwise her exam is benign other than her chronic asthma.] Other additions or changes: [None] History & Record Review Additional record(s) reviewed:: Other (Dr. Neal, ED provider) Lab Data Labs: Laboratory Results - last 24 hr 08/06/24 08/06/24 11:55 12:01 WBC 12.5 H RBC 4.88 Hgb 13.8 Hct 38.0 MCV 77.9 L MCH 28.3 MCHC 36.3 H RDW Std Deviation 36.5 RDW Coeff of Kofi 13.0 Plt Count 408 MPV 8.0 Immature Gran % (Auto) 1.000 H Neut % (Auto) 71.1 H Lymph % (Auto) 15.6 L [place]igg % (Auto) 11.8 H Eos % (Auto) 0.2 Baso % (Auto) 0.3 Absolute Neuts (auto) 8.9 H Absolute Lymphs (auto) 1.94 Nucleated RBC % 0 Sodium 119 L* Potassium 3.1 L Chloride 79 L Carbon Dioxide 27.6 Anion Gap 13 BUN 15 Creatinine 0.63 L Estim Creat Clear Calc 118.57 Est GFR (MDRD) Non-Af 107 BUN/Creatinine Ratio 23.3 H Glucose 151 H Calcium 9.3 Total Bilirubin 0.58 AST 30 ALT 21 Alkaline Phosphatase 82 Total Protein 6.6 Albumin 4.0 Globulin 2.6 Albumin/Globulin Ratio 1.5 Urine Color Yellow Urine Clarity Clear Urine pH 7.0 Ur Specific [place] 1.010 Urine Protein 30 H Urine Glucose (UA) Normal Urine Ketones Negative Urine Occult Blood 10 H Urine Nitrite Negative Urine Bilirubin Negative Urine Urobilinogen 4 H Ur Leukocyte Esterase Negative Urine RBC 0 SEEN Urine WBC 0 SEEN Ur Squamous Epith Cells 0-5 SEEN Urine Bacteria 0 SEEN Urine Mucus 0 SEEN Differential Diagnosis Differential Diagnosis: Dehydration Differential Diagnosis: Hyponatremia Management Discussion w/another healthcare provider: Other Treatment and Re-Evaluation :: Upon reevaluation, patient is lying on the ED cot awake, alert, no acute distress. She reports her nausea has since resolved. Lab work reveals slightly elevated white blood cell count of 12.5 with neutrophils of 71.1, hemoglobin 13.8, hematocrit 38, and platelets 408. Chemistry showed hyponatremia at 119, potassium 3.1, chloride 79 BUN and creatinine normal at 15 and 0.63 glucose was 151. Urinalysis shows elevated protein at 30 and blood 10. No evidence of infectious process in the urine. Patient will be admitted to the hospitalist service. Dr. Neal spoke with hospitalist who will come to see patient for admission. Discussed results and plan with patient and . Both agreeable. Discharge Plan Dx/Rx/DC Orders Clinical Impression: Hyponatremia, History of asthma, Dizziness, Nausea, History of hypertension Disposition Disposition: Acute Care Hospital [facility] Discharge Date/Time: 08/06/24 15:27
[2024-08-06 12:01] LABS: Bacteria 0 SEEN /hpf (None Seen); Mucous, Urine 0 SEEN /hpf (<or=2+); White Blood Cells 0 SEEN /hpf (0-5)
[2024-08-06] MEDS: 0.9% Normal Saline (1000mL) 1,000 ML 1000 ML IV (12:01)
[2024-08-06] MEDS: Ondansetron 4 MG/2 ML Vial IV (12:01)
[2024-08-06 12:03] LABS: Color, Urine Yellow (Yellow); Glucose, Dipstick Normal (Normal); Ketone-Dipstick Negative (Negative); Leukocyte Esterase-Dipstick Negative /ul (Negative); Nitrite-Dipstick Negative (Negative); Occult Blood-Urine 10 /ul (Negative); Protein-Dipstick 30 mg/dl (Negative); Urine Bilirubin Dipstick Negative (Negative); Urine Clarity Clear (Clear); Urine Urobilinogen 4 mg/dl (Normal)
[2024-08-06 12:08] LABS: Red Blood Cells-Urine 0 SEEN /hpf (0-5); Squamous Epithelial Cells - UA 0-5 SEEN /hpf (5-10)
[2024-08-06 12:11] LABS: Absolute Lymphocyte Count 1.94 X10^3/uL (0.83-4.51); Absolute Neutrophil Count 8.9 X10^3/uL (2.0-7.7); Basophil# 0.04 X10^3/uL; Basophil% 0.3 % (0-1); Eosinophil# 0.03 X10^3/uL; Eosinophils% 0.2 % (0-5); Hemoglobin 13.8 g/dL (12.0-15.0); Lymphocyte # 1.94 X10^3/ul (0.83-4.51); Lymphocyte % 15.6 % (19-41); Mean Corp Hgb Conc 36.3 g/dL (32-36); Mean Corpuscular Hgb 28.3 pg (27.0-32.0); Mean Corpuscular Volume 77.9 fL (81-99); Monocyte# 1.47 X10^3/uL; Monocyte% 11.8 % (0-10); NRBC Flagged by Analyzer 0 % (0-5); Neutrophil # 8.87 X10^3/uL (2.7-7.7); Neutrophil % 71.1 % (47-70); Platelet Count 408 K/mm3 (150-450); RBC Distribution Width SD 36.5 fl (35.1-43.9); Red Blood Count 4.88 M/mm3 (4.2-5.4); White Blood Count 12.5 K/mm3 (4.4-11.0)
[2024-08-06 13:10] LABS: ALB/GLOB Ratio 1.5 RATIO (0.9-2.4); AST(SGOT) 30 U/L (<=31); Alanine Aminotransfer ALT/SGPT 21 U/L (<=34); Alkaline Phosphatase 82 U/L (35-104); Anion Gap 13 (5-15); BUN 15 mg/dL (4-19); BUN/Creat Ratio 23.3 RATIO (10-20); Calcium,Total 9.3 mg/dL (7.6-11.0); Carbon Dioxide 27.6 mmol/L (21.0-32.0); Chloride 79 mmol/L (98-108); Creatinine, Serum 0.63 mg/dL (0.70-1.20); EST Glomerular Filtration Rate 107 (>60); Estimated Creatinine Clearance 118.57 ml/min (50-250); Globulin 2.6 g/dL (2.2-4.2); Glucose 151 mg/dL (70-99); Potassium 3.1 mmol/L (3.3-5.1); Protein, Total 6.6 g/dL (5.9-8.4); Sodium Level 119 mmol/L (133-145); Total Bilirubin 0.58 mg/dL (0.00-1.30)
--- NOTE | 2024-08-06 13:54 | HP.PCM.HOS_ITS ---
[facility] - General General Date of Service: 08/06/24 Chief Complaint: Has been vomiting HPI Narrative GURINDER MCCRARY, is a 54 F who presents with nausea and vomiting. Symptoms began over the past couple days. Patient states that she normally drinks a lot of water but has recently increased her intake to about 2.5 gallons per day. Presents to the emergency room and was noted to have a sodium 119. Hospital service was contacted for admission. Patient states that she is also been dizzy when she walks. [facility] Medical History Sjogren syndrome Essential hypertension [place]NE (obstructive sleep apnea) Ventral incisional hernia without obstruction or gangrene Anxiety and depression Osteoarthritis Rheumatoid arthritis Back pain GERD (gastroesophageal reflux disease) Chronic back pain Asthma exacerbation in COPD Home Medications ?Medication ?Instructions ?Recorded ?Last Taken ?Type lactobacillus combination no.8 3 3,000 mmu cells PO DA WILBERT 04/18/19 08/05/24 History billion cell capsule (Adult Probiotic) lansoprazole 30 mg capsule,delayed 30 mg PO DAILY gerd 04/18/19 08/05/24 History release (Prevacid) losartan 100 mg tablet 100 mg PO DAILY bp 04/18/19 08/05/24 History albuterol sulfate 2.5 mg/3 mL 2.5 mg inhalation Q4H SD N DYSPNEA, 07/11/19 Unknown History (0.083 %) solution for nebulization WHEEZING amlodipine 10 mg tablet 10 mg PO DAILY bp 07/11/19 0 08/05/24 History carisoprodol 350 mg tablet 350 mg PO BID muscle relaxe r 07/11/19 08/05/24 History hydrochlorothiazide 25 mg tablet 25 mg PO DAILY 08/05/24 History prednisone 10 mg tablet 10 mg PO DAILY PRN arthritis 07/11/19 08/05/24 History ipratropium 0.5 mg-albuterol 3 mg 3 ml inhalation Q6H PRN shortness 08/05/19 Unknown Rx (2.5 mg base)/3 mL nebulization of breath or wheezing #180 mL soln ergocalciferol (vitamin D2) 1,250 50,000 unit PO Q7D 0 10/27/19 08/03/24 History mcg (50,000 unit) capsule albuterol sulfate 90 mcg/actuation 2 puff inhalation Q 4H PRN PRN 03/27/21 08/05/24 Rx aerosol inhaler shortness of breath or wheez ing #18 grams dextroamphetamine-amphetamine 20 1 tab PO BID 08/06/24 08/05/24 History mg tablet fluoxetine 20 mg tablet 20 mg PO DAILY 08/06/2407/10 History Allergy/AdvReac Type Severity Reaction Status Date / Time meloxicam (From Mobic) Allergy Intermediate nausea and Verified 08/06/24 11:16 vomiting Sulfa (Sulfonamide Allergy Hives Verified 08/06/24 11:16 Antibiotics) levofloxacin (From Levaquin) AdvReac Other Verified 08/06/24 11:16 Family History Mother Diabetes Heart disease Hypertension Kidney disease Surgical History Hx of ventral hernia repair Hx of fasciotomy History of colonoscopy (~2014) History of carpal tunnel release of both wrists History of right hip replacement History of tonsillectomy History of section Social History Smoking Status: Light Smoker (<10/day) Tobacco: How many years used: 28 how long ago did patient quit smokin years, 2015 second hand exposure: Yes alcohol intake: current alcohol intake frequency: a few times a month substance use type: does not use caffeine: Yes Type: carbonated beverages Number of servings: 1 and coffee Number of servings: 3 ROS ROS Narrative Does not eat much. Had a period of 2 days where she did not eat anything. All review of systems were negative except as mentioned above in the history of present illness and the other review of systems. Vital Signs Vital Signs Vital Signs: 08/06/24 11:16 08/06/24 11:46 08/06/24 13:14 Temperature 36.4 C L Temperature Source Oral Pulse Rate 87 72 Respiratory Rate 18 18 Respiratory Effort Normal Respiratory Pattern Normal Blood Pressure 143/78 H 147/79 H Blood Pressure Mean 99 101 Pulse Ox 95 100 Oxygen Delivery Method Room Air 08/06/24 13:31 Temperature 36.6 C Temperature Source Pulse Rate 72 Respiratory Rate 18 Respiratory Effort Respiratory Pattern Blood Pressure 147/79 H Blood Pressure Mean 101 Pulse Ox 100 Oxygen Delivery Method Weight Weight: 101.151 kg Body Mass Index (BMI) 39.4 Physical Exam Const alert and no apparent distress HEENT normocephalic, head/scalp atraumatic, hearing grossly normal bilaterally and moist oral mucous membranes Resp normal respiratory effort and no retractions Resp Narrative: Bilateral wheezes Cardio regular rate, regular rhythm, S1 normal heart sound and S2 normal heart sound GI normal to inspection, nondistended, normoactive bowel sounds, soft to palpation, non-tender and non-distended Extremity normal to inspection and full ROM Results Lab / Micro Data 08/06/24 12:01 08/06/24 12:01 Labs: Laboratory Results - last 24 hr 08/06/24 11:55: Urine Color Yellow, Urine Clarity Clear, Urine pH 7.0, Ur Specific [place] 1.010, Urine Protein 30 H, Urine Glucose (UA) Normal, Urine Ketones Negative, Urine Occult Blood 10 H, Urine Nitrite Negative, Urine Bilirubin Negative, Urine Urobilinogen 4 H, Ur Leukocyte Esterase Negative, Urine RBC 0 SEEN, Urine WBC 0 SEEN, Ur Squamous Epith Cells 0-5 SEEN, Urine Bacteria 0 SEEN, Urine Mucus 0 SEEN 08/06/24 12:01: WBC 12.5 H, RBC 4.88, Hgb 13.8, Hct 38.0, MCV 77.9 L, MCH 28.3, MCHC 36.3 H, RDW Std Deviation 36.5, RDW Coeff of Kofi 13.0, Plt Count 408, MPV 8.0, Immature Gran % (Auto) 1.000 H, Neut % (Auto) 71.1 H, Lymph % (Auto) 15.6 L , [place] % (Auto) 11.8 H, Eos % (Auto) 0.2, Baso % (Auto) 0.3, Absolute Neuts (auto) 8.9 H, Absolute Lymphs (auto) 1.94, Nucleated RBC % 0, Sodium 119 L*, P otassium 3.1 L, Chloride 79 L, Carbon Dioxide 27.6, Anion Gap 13, BUN 15, C reatinine 0.63 L, Estim Creat Clear Calc 118.57, Est GFR (MDRD) Non-Af 107, B UN/Creatinine Ratio 23.3 H, Glucose 151 H, Calcium 9.3, Total Bilirubin 0.58, AST 30, ALT 21, Alkaline Phosphatase 82, Total Protein 6.6, Albumin 4.0, Globulin 2.6, Albumin/Globulin Ratio 1.5 Assessment & Plan Assessment/Plan (1) Hyponatremia: PLAN: Suspect the etiology is likely multifactorial: Due to HCTZ plus polydipsia. Polydipsia is more of a chronic process of the patient has recently increased her intake. Patient states that she normally drinks a lot of fluid due to dry mouth due to Sjogren's. Plan is to continue with normal saline IV fluids and then reevaluate. Additionally we will hold off on the HCTZ and would recommend holding off on that permanently. Unclear of the patient's recent nausea and vomiting was attributable to some GI cause or if this is somehow due to her hyponatremia. Supportive management. Patient is not confused she is alert and oriented but she does get confused or ataxic, would recommend getting a CT of the head. Doubt SIADH but will check a TSH and cortisol in case we need to rule that out. With the patient severely low sodium, she is not appropriate for discharged home at this time thus why she requires inpatient admission. PLAN: Plan Chronic conditions * Hypertension: Hold HCTZ due to hyponatremia. Continue with amlodipine, losartan * Asthma: Not in exacerbation but is wheezing. Patient is on bronchodilators at baseline. Will continue. Patient does take prednisone as needed for flareups of her RA though. * Depression: Continue with fluoxetine * ADHD: Is really unclear to me how she got that diagnosis but will defer to the prescriber if that needs to be further assessed or not. The meantime we will continue that to help prevent any kind of withdrawal symptoms. VTE prophylaxis with enoxaparin Disposition: To be determined. Will depend on the patient's sodium and her symptoms are doing. Patient sodium does not have to be normal when she is discharged but certainly does have to be much improved from where it is currently. CODE STATUS: Addressed with the patient. Patient wishes to be full code. Case discussed with the patient's at bedside. Charges/Coding Visit Charges Inpatient E&M: 01541 Init Hosp L3
[2024-08-06] MEDS: Ipratropium/Albuterol Sulfate 3 ML AMPUL.NEB INHALATION ×2 (16:26→22:10)
[2024-08-06 16:38] LABS: CORTISOL AM 8.87 ug/dL (6.02-18.40)
[2024-08-06] MEDS: 0.9% Normal Saline (1000mL) 1,000 ML 150 ML IV (16:48)
[2024-08-06] MEDS: 0.9% Saline Lock 10 ML Syringe IV (16:48)
[2024-08-06] MEDS: Albuterol 2.5 MG/3 ML VIAL.NEB. INHALATION (19:05)
[2024-08-06] MEDS: Nystatin Powder 15gm Bottle 1 APPLIC TOPICAL (20:11)
[2024-08-06] MEDS: Acetaminophen 500 MG Tablet 1000 MG PO (21:56)
[2024-08-06] MEDS: MELATONIN 3 MG TABLET 6 MG PO (23:15)
[2024-08-07] MEDS: Albuterol 2.5 MG/3 ML VIAL.NEB. INHALATION ×2 (04:00→13:47)
--- NOTE | 2024-08-07 07:47 | PN.HOSP_ITS ---
Reason for Visit Reason for Visit: Diagnoses Hypo-osmolality and hyponatremia (08/06/24) Subjective Subjective Feeling well. No new issues. Objective Data Objective Data Vital Signs: Vital Signs Temp Pulse Resp BP Pulse Ox O2 Del Method 37.3 C 78 18 134/62 H 92 Room Air 08/06/24 20:08 08/06/24 22:10 08/06/24 22:10 08/06/24 20:08 08/06/24 20:08 08/06/24 20:08 Oxygen Delivery Method Room Air Weight: 105.8 kg Body Mass Index (BMI) 41.3 Intake & Output: Intake and Output for Last 24 Hours 08/05/24 08/06/24 08/07/24 23:59 23:59 23:59 Intake Total 2400 / 2400 Balance 2400 / 2400 Lab / Micro Data 08/06/24 12:01 08/07/24 12:15 Labs: Laboratory Results - last 24 hr 08/06/24 11:55: Urine Color Yellow, Urine Clarity Clear, Urine pH 7.0, Ur Specific [place] 1.010, Urine Protein 30 H, Urine Glucose (UA) Normal, Urine Ketones Negative, Urine Occult Blood 10 H, Urine Nitrite Negative, Urine Bilirubin Negative, Urine Urobilinogen 4 H, Ur Leukocyte Esterase Negative, Urine RBC 0 SEEN, Urine WBC 0 SEEN, Ur Squamous Epith Cells 0-5 SEEN, Urine Bacteria 0 SEEN, Urine Mucus 0 SEEN 08/06/24 12:01: WBC 12.5 H, RBC 4.88, Hgb 13.8, Hct 38.0, MCV 77.9 L, MCH 28.3, MCHC 36.3 H, RDW Std Deviation 36.5, RDW Coeff of Kofi 13.0, Plt Count 408, MPV 8.0, Immature Gran % (Auto) 1.000 H, Neut % (Auto) 71.1 H, Lymph % (Auto) 15.6 L , [place] % (Auto) 11.8 H, Eos % (Auto) 0.2, Baso % (Auto) 0.3, Absolute Neuts (auto) 8.9 H, Absolute Lymphs (auto) 1.94, Nucleated RBC % 0, Sodium 119 L*, P otassium 3.1 L, Chloride 79 L, Carbon Dioxide 27.6, Anion Gap 13, BUN 15, C reatinine 0.63 L, Estim Creat Clear Calc 118.57, Est GFR (MDRD) Non-Af 107, B UN/Creatinine Ratio 23.3 H, Glucose 151 H, Calcium 9.3, Total Bilirubin 0.58, AST 30, ALT 21, Alkaline Phosphatase 82, Total Protein 6.6, Albumin 4.0, Globulin 2.6, Albumin/Globulin Ratio 1.5 08/06/24 15:31: Cortisol AM Sample 8.87 08/07/24 05:30: TSH 1.740 Physical Exam Const alert and no apparent distress HEENT head/scalp atraumatic and moist oral mucous membranes Neuro Sensorium / Orientation: awake Psych affect normal Assessment & Plan Assessment/Plan (1) Hyponatremia: PLAN: Suspect the etiology is likely multifactorial: Due to HCTZ plus polydipsia. Polydipsia is more of a chronic process of the patient has recently increased her intake. Patient states that she normally drinks a lot of fluid due to dry mouth due to Sjogren's. Plan is to continue with normal saline IV fluids and then reevaluate. Additionally we will hold off on the HCTZ and would recommend holding off on that permanently. Unclear of the patient's recent nausea and vomiting was attributable to some GI cause or if this is somehow due to her hyponatremia. Supportive management. Patient is not confused she is alert and oriented but she does get confused or ataxic, would recommend getting a CT of the head. Doubt SIADH but will check a TSH and cortisol in case we need to rule that out. With the patient severely low sodium, she is not appropriate for discharged home at this time thus why she requires inpatient admission. Improved. Follow up potassium as outpt. PLAN: Plan Chronic conditions * Hypertension: Hold HCTZ due to hyponatremia. Continue with amlodipine, losartan * Asthma: Not in exacerbation but is wheezing. Patient is on bronchodilators at baseline. Will continue. Patient does take prednisone as needed for flareups of her RA though. * Depression: Continue with fluoxetine * ADHD: Is really unclear to me how she got that diagnosis but will defer to the prescriber if that needs to be further assessed or not. The meantime we will continue that to help prevent any kind of withdrawal symptoms. VTE prophylaxis with enoxaparin Disposition: To be determined. Will depend on the patient's sodium and her symptoms are doing. Patient sodium does not have to be normal when she is discharged but certainly does have to be much improved from where it is currently. CODE STATUS: Addressed with the patient. Patient wishes to be full code.
[2024-08-07 07:59] LABS: Anion Gap 11 (5-15); BUN 11 mg/dL (4-19); BUN/Creat Ratio 16.2 RATIO (10-20); Calcium,Total 8.4 mg/dL (7.6-11.0); Chloride 89 mmol/L (98-108); Creatinine, Serum 0.69 mg/dL (0.70-1.20); EST Glomerular Filtration Rate 105 (>60); Estimated Creatinine Clearance 111.06 ml/min (50-250); Glucose 111 mg/dL (70-99); Sodium Level 126 mmol/L (133-145)
[2024-08-07 08:13] VITALS: BP 131/63; PULSE 73; RESP 20; TEMP 36.7; O2SAT 96
[2024-08-07] MEDS: Lansoprazole 15 MG Capsule.DR PO (08:16)
[2024-08-07] MEDS: Losartan Potassium 100 MG Tablet PO (08:17)
[2024-08-07] MEDS: Enoxaparin 40 MG/0.4 ML Syringe SC (08:17)
[2024-08-07] MEDS: amLODIPine 10 MG Tablet PO (08:17)
[2024-08-07] MEDS: FLUoxetine 20 MG Capsule PO (08:17)
[2024-08-07] MEDS: DEXTROAMPHETAMINE/AMPHETAMINE 20 MG TABLET PO (08:22)
[2024-08-07] MEDS: Ipratropium/Albuterol Sulfate 3 ML AMPUL.NEB INHALATION (08:52)
[2024-08-07 08:54] VITALS: PULSE 88; RESP 18
[2024-08-07] MEDS: Nystatin Powder 15gm Bottle 1 APPLIC TOPICAL (09:24)
[2024-08-07 09:25] VITALS: PULSE 80
--- NOTE | 2024-08-07 10:15 | NURSING ---
downtime documentation 08/07/24 12am until 7am
[2024-08-07] MEDS: Potassium Chloride Oral Tablet 20 MEQ 60 MEQ PO (11:17)
[2024-08-07 13:05] LABS: Anion Gap 10 (5-15); BUN 10 mg/dL (4-19); Calcium,Total 8.7 mg/dL (7.6-11.0); Carbon Dioxide 26.5 mmol/L (21.0-32.0); Chloride 90 mmol/L (98-108); Creatinine, Serum 0.64 mg/dL (0.70-1.20); EST Glomerular Filtration Rate 106 (>60); Estimated Creatinine Clearance 119.73 ml/min (50-250); Glucose 130 mg/dL (70-99); Potassium 3.2 mmol/L (3.3-5.1); Sodium Level 127 mmol/L (133-145)
--- NOTE | 2024-08-07 13:32 | DS.PCM_ITS ---
Providers Date of Admission: 08/06/24 Primary Care Physician: Ezra Wahl MD Reason For Visit: HYPONATREMIA Diagnosis Discharge Diagnosis (1) Hyponatremia: Status: Acute Code(s): E87.1 - Hypo-osmolality and hyponatremia Plan: Suspect the etiology is likely multifactorial: Due to HCTZ plus polydipsia. Polydipsia is more of a chronic process of the patient has recently increased her intake. Patient states that she normally drinks a lot of fluid due to dry mouth due to Sjogren's. Plan is to continue with normal saline IV fluids and then reevaluate. Additionally we will hold off on the HCTZ and would recommend holding off on that permanently. Unclear of the patient's recent nausea and vomiting was attributable to some GI cause or if this is somehow due to her hyponatremia. Supportive management. Patient is not confused she is alert and oriented but she does get confused or ataxic, would recommend getting a CT of the head. Doubt SIADH but will check a TSH and cortisol in case we need to rule that out. With the patient severely low sodium, she is not appropriate for discharged home at this time thus why she requires inpatient admission. Improved. Follow up potassium as outpt. Plan Chronic conditions * Hypertension: Hold HCTZ due to hyponatremia. Continue with amlodipine, losartan * Asthma: Not in exacerbation but is wheezing. Patient is on bronchodilators at baseline. Will continue. Patient does take prednisone as needed for flareups of her RA though. * Depression: Continue with fluoxetine * ADHD: Is really unclear to me how she got that diagnosis but will defer to the prescriber if that needs to be further assessed or not. The meantime we will continue that to help prevent any kind of withdrawal symptoms. VTE prophylaxis with enoxaparin Disposition: To be determined. Will depend on the patient's sodium and her symptoms are doing. Patient sodium does not have to be normal when she is discharged but certainly does have to be much improved from where it is currently. CODE STATUS: Addressed with the patient. Patient wishes to be full code. Medications at Discharge Home Medications lactobacillus combination no.8 3 billion cell capsule (Adult Probiotic) 3,000 mmu cells PO DAILY 04/18/19 lansoprazole 30 mg capsule,delayed release (Prevacid) 30 mg PO DAILY gerd 04/18/19 losartan 100 mg tablet 100 mg PO DAILY bp 04/18/19 albuterol sulfate 2.5 mg/3 mL (0.083 %) solution for nebulization 2.5 mg inhalation Q4H PRN DYSPNEA, WHEEZING 07/11/19 amlodipine 10 mg tablet 10 mg PO DAILY bp 07/11/19 carisoprodol 350 mg tablet 350 mg PO BID muscle relaxer 07/11/19 prednisone 10 mg tablet 10 mg PO DAILY PRN arthritis 07/11/19 ipratropium 0.5 mg-albuterol 3 mg (2.5 mg base)/3 mL nebulization soln 3 ml inhalation Q6H PRN shortness of breath or wheezing #180 mL 08/05/19 ergocalciferol (vitamin D2) 1,250 mcg (50,000 unit) capsule 50,000 unit PO Q7D 10/27/19 albuterol sulfate 90 mcg/actuation aerosol inhaler 2 puff inhalation Q4H PRN PRN shortness of breath or wheezing #18 grams 03/27/21 dextroamphetamine-amphetamine 20 mg tablet 1 tab PO BID 08/06/24 fluoxetine 20 mg tablet 20 mg PO DAILY 08/06/24 Hospital Course Operations None Procedures None Summary of Care Provided Hospital Course: Patient presents with nausea and was found to be hyponatremic with a sodium of 119. Patient admits to drinking 2 to 2-1/2 gallons of water per day. She does because her mouth is dry. Additionally she has taken hydrochlorothiazide which I think complicated the picture. I recommended that she either chew gum, Biotene and/or mints to help with her dry mouth. Additionally recommend she discontinue HCTZ moving forward and to limit her fluid intake to a gallon of water per day. Weight / BMI Weight Weight: 105.8 kg Body Mass Index (BMI) 41.3 ABG / Lab / Microbiology Data 08/06/24 12:01 08/07/24 12:15 Laboratory: Laboratory Results - last 24 hr 08/06/24 15:31: Cortisol AM Sample 8.87 08/07/24 05:30: Sodium 126 L, Potassium 3.0 L, Chloride 89 L, Carbon Dioxide 26.0, Anion Gap 11, BUN 11, Creatinine 0.69 L, Estim Creat Clear Calc 111.06, Est GFR (MDRD) Non-Af 105, BUN/Creatinine Ratio 16.2, Glucose 111 H, Calcium 8.4, TSH 1.740 08/07/24 12:15: Sodium 127 L, Potassium 3.2 L, Chloride 90 L, Carbon Dioxide 26.5, Anion Gap 10, BUN 10, Creatinine 0.64 L, Estim Creat Clear Calc 119.73, Est GFR (MDRD) Non-Af 106, BUN/Creatinine Ratio 16.0, Glucose 130 H, Calcium 8.7 D/C Instructions Discharge Diet: No restrictions (Try to limit your fluid intake to about a gallon of water per day.) DC O2, CPAP, BIPAP Needs Home O2 Discharge instructions: No Meaningful Use Info Meaningful Use Meaningful Use Diagnoses (Choose all that apply): None applicable Ischemic Stroke Statin Dosing Therapy Reference: STATIN DOSE THERAPY REFERENCE: * Patients > 75 years receive moderate or high dose statin therapy. * Patients 75 years or YOUNGER should receive HIGH intensity statin dose unless contraindicated. You will be required to document reason for non-treatment if statin daily dose does not meet guidelines. HIGH DOSE STATIN THERAPY DAILY Atorvastatin > than or = to 40 mg Rosuvastatin > than or = to 20 mg Amlodipine + Atorvastatin > than or = to 2.5/40 mg Ezetimibe + Simvastatin 10/80 mg Simvastatin 80mg Discharge Plan Admission Admit Date/Time: 08/06/24 13:49 Primary Reason for Your Visit: Hyponatremia Attending Provider: Luis A Clark Primary Care Provider: Ezra Wahl Instructions Additional Instructions / Restrictions: Your sodium is low due to large water consumption likely diluting your sodium but also taking hydrochlorothiazide. As we discussed, you will discontinue your hydrochlorothiazide. Additionally recommend that you limit your fluid intake to around a gallon of water per day. To help with your dry mouth, try Biotene, gum or mints. Discharge Orders/Prescriptions Prescriptions: Continued lansoprazole [Prevacid] 30 mg capsule,delayed release(DR/EC) 30 mg PO DAILY losartan 100 mg tablet 100 mg PO DAILY Adult Probiotic 3 billion cell capsule 3,000 mmu cells PO DAILY prednisone 10 mg tablet 10 mg PO DAILY PRN (Reason: arthritis) amlodipine 10 mg tablet 10 mg PO DAILY albuterol sulfate 2.5 mg /3 mL (0.083 %) solution for nebulization 2.5 mg inhalation Q4H PRN (Reason: DYSPNEA, WHEEZING) Patient Comments: breathing carisoprodol 350 mg tablet 350 mg PO BID Patient Comments: back pain ergocalciferol (vitamin D2) 50,000 UNIT capsule 50,000 unit PO Q7D fluoxetine 20 mg tablet 20 mg PO DAILY dextroamphetamine-amphetamine 20 mg tablet 1 tab PO BID ipratropium-albuterol 0.5 mg-3 mg(2.5 mg base)/3 mL solution for nebulization 3 ml INHALATION Q6H PRN (Reason: shortness of breath or wheezing) Qty: 180 6RF albuterol sulfate 90 mcg/actuation HFA aerosol inhaler 2 puff inhalation Q4H PRN PRN (Reason: shortness of breath or wheezing) Qty: 18 11RF Discontinued hydrochlorothiazide 25 mg tablet 25 mg PO DAILY Referrals / Follow Up: Ezra Wahl MD [Primary Care Provider] - Within 2 Weeks Disposition Disposition (needs filled in before D/C Order can be placed): Home, Self Care Charges/Coding Visit Charges Inpatient E&M: 70336 Disch Hosp
[2024-08-07 13:48] VITALS: PULSE 86; RESP 16
== END 2024-08-07 15:08 | disposition home or self-care (01) | DRG 426 ==
LOC: ED 13:35 → MS3 08-07 13:37
PROVIDERS: Emergency Provider Emergency Medicine; PCP Family Medicine
DX: E87.1 Hypo-osmolality and hyponatremia (principal); M06.9 Rheumatoid arthritis, unspecified; J44.89 Other specified chronic obstructive pulmonary disease; F32.A Depression, unspecified; I10 Essential (primary) hypertension; K21.9 Gastro-esophageal reflux disease without esophagitis; M19.90 Unspecified osteoarthritis, unspecified site; F41.9 Anxiety disorder, unspecified; G47.33 Obstructive sleep apnea (adult) (pediatric); F17.200 Nicotine dependence, unspecified, uncomplicated; G89.29 Other chronic pain; M35.00 Sjogren syndrome, unspecified; M54.9 Dorsalgia, unspecified; Z79.899 Other long term (current) drug therapy; F90.9 Attention-deficit hyperactivity disorder, unspecified type
CPT/HCPCS: 36415; 80048; 80053; 81001; 82533; 84443; 85025; 94640; 96361; 96372; 96374; 97802; 99221; 99284; A4216; G0378; J2405

== ENCOUNTER 2024-08-11 12:26 | Emergency (ER) | payer MEDICAID, SELFPAY ==
[2024-08-11] VITALS (9 sets, daily range): BP systolic 140–185; BP diastolic 67–98; PULSE 79–103; RESP 14–28; TEMP 36.6; O2SAT 94–98; BMI 42.5
--- NOTE | 2024-08-11 13:52 | EKG12_ITS ---
Test Reason : SOB Blood Pressure : */* mmHG Vent. Rate : 87 BPM Atrial Rate : 87 BPM P-R Int : 128 ms QRS Dur : 76 ms QT Int : 344 ms P-R-T Axes : 66 69 65 degrees QTcB Int : 413 ms Normal sinus rhythm Low voltage QRS Septal infarct , age undetermined Abnormal ECG Confirmed by MARILIN MARINA, JASON ([id number]), purchase request editor DEE DEE BROWNING ([id number]) on 08/12/2024 9:36:04 AM Referred By: Confirmed By: JASON GASTON MD
[2024-08-11 14:18] LABS: Absolute Lymphocyte Count 1.66 X10^3/uL (0.83-4.51); Absolute Neutrophil Count 5.4 X10^3/uL (2.0-7.7); Basophil# 0.06 X10^3/uL; Basophil% 0.7 % (0-1); Eosinophil# 0.25 X10^3/uL; Eosinophils% 3.1 % (0-5); Hematocrit 36.1 % (37-47); Hemoglobin 12.3 g/dL (12.0-15.0); Lymphocyte # 1.66 X10^3/ul (0.83-4.51); Lymphocyte % 20.3 % (19-41); Mean Corp Hgb Conc 34.1 g/dL (32-36); Mean Platelet Vol. 8.2 fl (6.2-12.0); Monocyte% 9.8 % (0-10); NRBC Flagged by Analyzer 0 % (0-5); Neutrophil # 5.37 X10^3/uL (2.7-7.7); Neutrophil % 65.5 % (47-70); Platelet Count 320 K/mm3 (150-450); RBC Distribution Width CV 14.7 % (11.6-14.6); RBC Distribution Width SD 43.7 fl (35.1-43.9); White Blood Count 8.2 K/mm3 (4.4-11.0)
[2024-08-11] MEDS: predniSONE 20 MG Tablet 60 MG PO (14:18)
[2024-08-11] MEDS: Ipratropium/Albuterol Sulfate 3 ML AMPUL.NEB INHALATION (14:23)
--- NOTE | 2024-08-11 14:35 | RAD_ITS ---
PROCEDURE: CHEST PA AND LATERAL 08/11/2024 REASON FOR EXAM: COUGH TECHNIQUE: Frontal and lateral views of the chest. COMPARISON: None FINDINGS: Hardware: EKG electrodes are seen. Heart: The heart size is normal. Mediastinum: The mediastinal contour is unremarkable. Lungs: Hyperinflation. The lungs are clear. Bones: The bones are unremarkable. RAD/Chest PA and Lateral IMPRESSION: Hyperinflation. The lungs are clear. Reading Location: [place] [address]
[2024-08-11 15:17] LABS: Anion Gap 11 (5-15); BUN 15 mg/dL (4-19); BUN/Creat Ratio 20.4 RATIO (10-20); Calcium,Total 9.3 mg/dL (7.6-11.0); Carbon Dioxide 23.3 mmol/L (21.0-32.0); Chloride 92 mmol/L (98-108); Creatinine, Serum 0.73 mg/dL (0.70-1.20); EST Glomerular Filtration Rate 100 (>60); Estimated Creatinine Clearance 106.71 ml/min (50-250); Glucose 123 mg/dL (70-99); Potassium 5.3 mmol/L (3.3-5.1); Sodium Level 127 mmol/L (133-145)
[2024-08-11 16:06] LABS: Mucous, Urine 0 SEEN /hpf (<or=2+)
--- NOTE | 2024-08-11 16:07 | EDS_ITS ---
HPI History of Present Illness Chief Complaint: Shortness of Breath Informant: patient Narrative Narrative: History of asthma COPD and tobacco presents increasing nonproductive cough with wheezing last few days. Productive fever and chills. Urine has been darker. No dysuria. Patient reports she was hospitalized overnight 5 days ago for low sodium. States she was drinking a lot of water due to her history of Sjogren's disease. She has been on a fluid restriction up to 1 gallon a day. She has been compliant. Denies nausea vomiting or diarrhea. [facility] Medical History Anxiety Depression Smoker BiPAP (biphasic positive airway pressure) dependence Sleep apnea COPD (chronic obstructive pulmonary disease) Asthma Hypertension Migraines Sjogren syndrome Essential hypertension [place] (obstructive sleep apnea) Ventral incisional hernia without obstruction or gangrene Anxiety and depression Osteoarthritis Rheumatoid arthritis Back pain GERD (gastroesophageal reflux disease) Chronic back pain Asthma exacerbation in COPD Home Medications ?Medication ?Instructions ?Recorded ?Last Taken ?Type lactobacillus combination no.8 3 3,000 mmu cells PO DA WILBERT 04/18/19 08/05/24 History billion cell capsule (Adult Probiotic) lansoprazole 30 mg capsule,delayed 30 mg PO DAILY gerd 04/18/19 08/05/24 History release (Prevacid) losartan 100 mg tablet 100 mg PO DAILY bp 04/18/19 08/05/24 History albuterol sulfate 2.5 mg/3 mL 2.5 mg inhalation Q4H [place] N DYSPNEA, 07/11/19 Unknown History (0.083 %) solution for nebulization WHEEZING amlodipine 10 mg tablet 10 mg PO DAILY bp 07/11/19 0 08/05/24 History carisoprodol 350 mg tablet 350 mg PO BID muscle relaxe r 07/11/19 08/05/24 History prednisone 10 mg tablet 10 mg PO DAILY PRN arthritis 07/11/19 08/05/24 History ipratropium 0.5 mg-albuterol 3 mg 3 ml inhalation Q6H PRN shortness 08/05/19 Unknown Rx (2.5 mg base)/3 mL nebulization of breath or wheezing #180 mL soln ergocalciferol (vitamin D2) 1,250 50,000 unit PO Q7D 0 10/27/19 08/03/24 History mcg (50,000 unit) capsule albuterol sulfate 90 mcg/actuation 2 puff inhalation Q 4H PRN PRN 03/27/21 08/05/24 Rx aerosol inhaler shortness of breath or wheez ing #18 grams dextroamphetamine-amphetamine 20 1 tab PO BID 08/06/24 08/05/24 History mg tablet fluoxetine 20 mg tablet 20 mg PO DAILY 08/06/2407/10 History hydroxychloroquine 200 mg tablet 200 mg PO BID 5 Unknown History ipratropium bromide 42 mcg (0.06 1 spray intranasal BI D PRN PRN 08/11/24 Unknown History %) nasal spray allergy symptoms prednisone 20 mg tablet 60 mg (3 x 20 mg) PO DAILY # 12 08/11/24 Unknown Rx TABLETS Allergy/AdvReac Type Severity Reaction Status Date / Time meloxicam (From Mobic) Allergy Intermediate nausea and Verified 08/11/24 12:28 vomiting Sulfa (Sulfonamide Allergy Hives Verified 08/11/24 12:28 Antibiotics) [facility]ofloxacin (From [facility]) AdvReac Other Verified 08/11/24 12:28 Family History Mother Diabetes Heart disease Hypertension Kidney disease Surgical History Hx of ventral hernia repair Hx of fasciotomy History of colonoscopy (~2014) History of carpal tunnel release of both wrists History of right hip replacement History of tonsillectomy History of section Social History Smoking Status: Light Smoker (<10/day) Tobacco: How many years used: 28 how long ago did patient quit smokin years, 2016 second hand exposure: Yes alcohol intake: current alcohol intake frequency: a few times a month substance use type: does not use caffeine: Yes Type: carbonated beverages Number of servings: 1 and coffee Number of servings: 3 ROS ROS ED Constitutional Constitutional ED: Reports chills and fever(s); Denies sweats ENT ENT ED: Denies sore throat Cardiovascular Cardiovascular: Denies chest pain, leg edema, palpitations or racing heartbeat Respiratory/Chest Respiratory/Chest: Reports cough and dyspnea; Denies dyspnea on exertion Gastrointestinal Gastrointestinal: Denies abdominal pain, diarrhea, nausea or vomiting Genitourinary Genitourinary ED: Denies dysuria, hematuria or urinary frequency Musculoskeletal Musculoskeletal: Denies back pain, extremity pain or neck pain Integumentary Denies rash or wounds Neurologic Neurologic: Denies headache(s), paresthesias or weakness EXAM Physical Exam Const Vital Signs: 08/11/24 12:28 08/11/24 12:38 08/11/24 12:41 Temperature 97.8 F Temperature Source Temporal Pulse Rate 103 H Respiratory Rate 28 H Respiratory Effort Non-Labored Short of Breath Respiratory Depth Normal Respiratory Pattern Blood Pressure 185/98 H Blood Pressure Mean 127 Pulse Ox 98 94 Oxygen Delivery Method Room Air Room Air Room Air 08/11/24 12:59 08/11/24 13:31 08/11/24 14:23 Temperature 98 F Temperature Source Oral Pulse Rate 90 92 79 Respiratory Rate 14 15 17 Respiratory Effort Respiratory Depth Respiratory Pattern Normal Blood Pressure 140/97 H 143/96 H Blood Pressure Mean 111 111 Pulse Ox 97 98 Oxygen Delivery Method Room Air Room Air 08/11/24 14:30 08/11/24 15:18 08/11/24 16:21 Temperature Temperature Source Pulse Rate 85 82 Respiratory Rate 16 17 Respiratory Effort Respiratory Depth Respiratory Pattern Blood Pressure 142/67 H 148/75 H 156/84 H Blood Pressure Mean 92 99 108 Pulse Ox 98 98 Oxygen Delivery Method Room Air Room Air Positive well nourished and well developed General Appearance ED: well developed and NAD HEENT Reports moist mucous membranes normocephalic and atraumatic Eyes General Eye ED: Yes normal appearance of both eyes Neck full ROM Chest Wall Chest: Negative for tenderness Resp Resp Narrative: Mild bilateral wheezing, no distress. Effort and Inspection: symmetric chest movement; Negative for respiratory distress Cardio regular rate, regular rhythm and no murmurs Peripheral Pulses: pulses 2+ throughout GI normal to inspection, nondistended, normoactive bowel sounds and non-tender Palpation: Negative for guarding or rebound tenderness present Extremity normal to inspection General Extremety ED: Negative for edema or tenderness General Extremity: Negative for edema Neuro oriented x3 and no sensory deficits noted Sensorium / Orientation: awake and alert Skin no rashes or lesions noted and no wounds MDM MDM MDM Narrative Medical decision making narrative: Interventions / MDM: Differential diagnosis: Asthma exacerbation, history of COPD and tobacco, history of hyponatremia. Diagnosis considered but do not suspect: Pneumonia however chest x-ray negative. My EKG interpretation: N/A Imaging independently reviewed and interpreted by myself: 2 view chest x-ray: No acute process also read by radiology. External documents reviewed: N/A Test considered but not ordered:N/A ED course: Vital stable nontoxic normal pulse ox mild wheeze on exam. Asthma COPD and tobacco history. Nonproductive cough. History of recent hyponatremia. Labs were ordered, COVID flu RSV, chest x-ray. 1610: Chest x-ray negative COVID flu RSV negative. Labs sodium 127 stable same as when she was discharged few days ago. Creatinine 0.73. Clinically feeling better. No productive sputum, no indication for antibiotics. Awaiting urine results at this time. Re-evaluation: stable Disposition discussed with patient/family/significant other: Patient Case discussed with consulting clinician: N/A This note was generated with [employer] dictation software. It may contain incorrect words, spelling, and punctuation that were not noted in checking the note before signing. Interventions / MDM: Lab Data Labs: Laboratory Results - last 24 hr 08/11/24 08/11/24 14:10 15:49 WBC 8.2 RBC 4.40 Hgb 12.3 Hct 36.1 L MCV 82.0 MCH 28.0 MCHC 34.1 RDW Std Deviation 43.7 RDW Coeff of Kofi 14.7 H Plt Count 320 MPV 8.2 Immature Gran % (Auto) 0.600 Neut % (Auto) 65.5 Lymph % (Auto) 20.3 [place] % (Auto) 9.8 Eos % (Auto) 3.1 Baso % (Auto) 0.7 Absolute Neuts (auto) 5.4 Absolute Lymphs (auto) 1.66 Nucleated RBC % 0 Sodium 127 L Potassium 5.3 H Chloride 92 L Carbon Dioxide 23.3 Anion Gap 11 BUN 15 Creatinine 0.73 Estim Creat Clear Calc 106.71 Est GFR (MDRD) Non-Af 100 BUN/Creatinine Ratio 20.4 H Glucose 123 H Calcium 9.3 Urine Color Yellow Urine Clarity Sl. Cloudy Urine pH 7.0 Ur Specific [place] 1.010 Urine Protein 15 H Urine Glucose (UA) Normal Urine Ketones Negative Urine Occult Blood Negative Urine Nitrite Negative Urine Bilirubin Negative Urine Urobilinogen Normal Ur Leukocyte Esterase Negative Urine RBC 0-5 SEEN Urine WBC 0-5 SEEN Ur Squamous Epith Cells 0-5 SEEN Urine Bacteria 1+ Urine Mucus 0 SEEN Radiography Diagnostic Testing: Clinical Impression(s) from Imaging Studies Chest X-Ray 08/11/24 14:35 IMPRESSION: Hyperinflation. The lungs are clear. Reading Location: [place] [address] Discharge Plan Triage Chief Complaint: Shortness of Breath ED Provider: Roman Mandel Dx/Rx/DC Orders Clinical Impression: Asthma exacerbation, Hyponatremia, Tobacco dependence Instructions: Asthma and COPD Prescriptions: New prednisone 20 mg tablet 60 mg PO DAILY Qty: 12 0RF No Action lansoprazole [Prevacid] 30 mg capsule,delayed release(DR/EC) 30 mg PO DAILY losartan 100 mg tablet 100 mg PO DAILY Adult Probiotic 3 billion cell capsule 3,000 mmu cells PO DAILY prednisone 10 mg tablet 10 mg PO DAILY PRN (Reason: arthritis) amlodipine 10 mg tablet 10 mg PO DAILY albuterol sulfate 2.5 mg /3 mL (0.083 %) solution for nebulization 2.5 mg inhalation Q4H PRN (Reason: DYSPNEA, WHEEZING) Patient Comments: breathing carisoprodol 350 mg tablet 350 mg PO BID Patient Comments: back pain ergocalciferol (vitamin D2) 50,000 UNIT capsule 50,000 unit PO Q7D fluoxetine 20 mg tablet 20 mg PO DAILY dextroamphetamine-amphetamine 20 mg tablet 1 tab PO BID hydroxychloroquine 200 mg tablet 200 mg PO BID ipratropium bromide 42 mcg (0.06 %) spray,non-aerosol 1 spray INTRANASAL BID PRN PRN (Reason: allergy symptoms) ipratropium-albuterol 0.5 mg-3 mg(2.5 mg base)/3 mL solution for nebulization 3 ml INHALATION Q6H PRN (Reason: shortness of breath or wheezing) Qty: 180 6RF albuterol sulfate 90 mcg/actuation HFA aerosol inhaler 2 puff inhalation Q4H PRN PRN (Reason: shortness of breath or wheezing) Qty: 18 11RF Primary Care Provider: Ezra Wahl Referrals: Ezra Wahl MD [Primary Care Provider] - Activity Restrictions/Additional Instructions: Chest x-ray negative. COVID flu RSV negative. Try to stop smoking as this can make your symptoms worse. Labs sodium 127 stable from 1 year discharge. Continue your fluid restrictions. Continue your nebulizers for wheezing. Take steroids as prescribed. Follow-up with your doctor. Print Language: French Disposition Disposition: Home, Self Care Discharge Date/Time: 08/11/24 16:22
[2024-08-11 16:10] LABS: Color, Urine Yellow (Yellow); Glucose, Dipstick Normal (Normal); Ketone-Dipstick Negative (Negative); Leukocyte Esterase-Dipstick Negative /ul (Negative); Nitrite-Dipstick Negative (Negative); Occult Blood-Urine Negative /ul (Negative); Protein-Dipstick 15 mg/dl (Negative); Urine Bilirubin Dipstick Negative (Negative); Urine Clarity Sl. Cloudy (Clear); Urine Urobilinogen Normal (Normal)
[2024-08-11 16:51] LABS: Bacteria 1+ /hpf (None Seen); Squamous Epithelial Cells - UA 0-5 SEEN /hpf (5-10)
[2024-08-11 16:52] LABS: Red Blood Cells-Urine 0-5 SEEN /hpf (0-5); White Blood Cells 0-5 SEEN /hpf (0-5)
== END 2024-08-11 16:22 | disposition home or self-care (01) ==
PROVIDERS: Emergency Provider Emergency Medicine; PCP Family Medicine; Visit Provider Emergency Medicine
DX: J45.901 Unspecified asthma with (acute) exacerbation (principal); E87.1 Hypo-osmolality and hyponatremia; R50.9 Fever, unspecified; I10 Essential (primary) hypertension; G47.33 Obstructive sleep apnea (adult) (pediatric); Z99.89 Dependence on other enabling machines and devices; F17.210 Nicotine dependence, cigarettes, uncomplicated
CPT/HCPCS: 71046; 80048; 81001; 85025; 87631; 93005; 94640; 99284; A4216

== ENCOUNTER → 2024-08-16 | Outpatient (CLI) | payer MEDICAID, SELFPAY ==
[2024-08-16 11:29] LABS: Vitamin D,25 Hydroxy 33.5 ng/mL (30-100)
[2024-08-16 11:30] LABS: ALB/GLOB Ratio 1.5 RATIO (0.9-2.4); AST(SGOT) 14 U/L (<=31); Alanine Aminotransfer ALT/SGPT 15 U/L (<=34); Albumin, Serum 3.9 g/dL (3.5-5.0); Alkaline Phosphatase 67 U/L (35-104); Amphetamine Urine PRESUMPTIVE POSITIVE (<1000 ng/mL); Anion Gap 11 (5-15); BUN 14 mg/dL (4-19); BUN/Creat Ratio 22.9 RATIO (10-20); Barbiturate Urine NEGATIVE (< 200 ng/mL); Benzodiazepine Urine NEGATIVE (< 200 ng/mL); Buprenorphine Urine NEGATIVE (< 200 ng/mL); Calcium,Total 9.2 mg/dL (7.6-11.0); Chloride 94 mmol/L (98-108); Cocaine Urine NEGATIVE (< 300 ng/mL); Creatinine, Serum 0.63 mg/dL (0.70-1.20); EST Glomerular Filtration Rate 107 (>60); Fentanyl, Urine NEGATIVE; Globulin 2.7 g/dL (2.2-4.2); Glucose 83 mg/dL (70-99); Methadone Urine NEGATIVE (< 300 ng/mL); Opiates Urine NEGATIVE (< 300 ng/mL); Oxycodone, Urine NEGATIVE (< 100 ng/mL); PCP Urine NEGATIVE (< 25 ng/mL); Potassium 4.1 mmol/L (3.3-5.1); Protein, Total 6.6 g/dL (5.9-8.4); Sodium Level 133 mmol/L (133-145); THC Urine NEGATIVE (< 50 ng/mL); Total Bilirubin 0.25 mg/dL (0.00-1.30)
== END | disposition home or self-care (01) ==
LOC: MTLAB 08:58
PROVIDERS: PCP Family Medicine; Referring Provider Family Medicine; Visit Provider Family Medicine
DX: F90.9 Attention-deficit hyperactivity disorder, unspecified type (principal); E87.5 Hyperkalemia; R79.89 Other specified abnormal findings of blood chemistry
CPT/HCPCS: 36415; 80053; 80307; 82306

== ENCOUNTER 2024-11-17 08:55 | Outpatient (CLI) | payer MEDICAID, SELFPAY ==
[2024-11-17 11:45] LABS: Potassium 4.1 mmol/L (3.3-5.1); Vitamin D,25 Hydroxy 49.3 ng/mL (30-100)
== END 2024-11-17 23:59 | disposition home or self-care (01) ==
LOC: MFPLAB 08:56
PROVIDERS: PCP Family Medicine; Referring Provider Family Medicine; Visit Provider Family Medicine
DX: E87.5 Hyperkalemia (principal); R79.89 Other specified abnormal findings of blood chemistry
CPT/HCPCS: 36415; 82306; 84132

== ENCOUNTER → 2025-01-02 | Outpatient (CLI) | payer MEDICAID, SELFPAY ==
[2025-01-02 16:03] LABS: Mucous, Urine 0 SEEN /hpf (<or=2+)
[2025-01-02 18:13] LABS: Color, Urine Straw (Yellow); Glucose, Dipstick Normal (Normal); Ketone-Dipstick Negative (Negative); Leukocyte Esterase-Dipstick Negative /ul (Negative); Nitrite-Dipstick Negative (Negative); Occult Blood-Urine Negative /ul (Negative); Protein-Dipstick 30 mg/dl (Negative); Specific Gravity, Urine 1.010 (1.002-1.030); Urine Bilirubin Dipstick Negative (Negative)
[2025-01-02 18:22] LABS: AST(SGOT) 25 U/L (<=31); Alanine Aminotransfer ALT/SGPT 23 U/L (<=34); Albumin, Serum 4.3 g/dL (3.5-5.0); Alkaline Phosphatase 97 U/L (35-104); Anion Gap 13 (5-15); BUN 7 mg/dL (4-19); BUN/Creat Ratio 11.0 RATIO (10-20); Calcium,Total 9.7 mg/dL (7.6-11.0); Carbon Dioxide 22.5 mmol/L (21.0-32.0); Chloride 95 mmol/L (98-108); Globulin 2.9 g/dL (2.2-4.2); Glucose 101 mg/dL (70-99); Potassium 3.8 mmol/L (3.3-5.1)
[2025-01-02 19:30] LABS: Red Blood Cells-Urine 0-5 SEEN /hpf (0-5)
[2025-01-02 19:31] LABS: Squamous Epithelial Cells - UA 0-5 SEEN /hpf (5-10)
== END | disposition home or self-care (01) ==
LOC: MFPLAB 16:02
PROVIDERS: PCP Family Medicine; Referring Provider Family Medicine; Visit Provider Family Medicine
DX: R42 Dizziness and giddiness (principal)
CPT/HCPCS: 36415; 80053; 81001

== ENCOUNTER → 2025-03-14 | Outpatient (CLI) | payer MEDICAID, SELFPAY ==
--- NOTE | 2025-03-14 10:04 | VDLE_ITS ---
Reason For Study VL/Venous Duplex US, Unilateral
== END | disposition home or self-care (01) ==
LOC: CVS 10:01
PROVIDERS: PCP Family Medicine; Referring Provider Physician Assistant; Visit Provider Physician Assistant
DX: M79.89 Other specified soft tissue disorders (principal); I83.891 Varicose veins of right lower extremity with other complications
CPT/HCPCS: 93971